=== PATIENT | female | born 1960 | race Caucasian/White ===

== ENCOUNTER 2020-01-25 07:19 | Outpatient (REF) | payer OTHER, SELFPAY ==
[2020-01-25 08:16] LABS: Alanine Aminotransferase 37 U/L (0-31); Albumin Level 4.2 g/dL (3.5-5.0); Alkaline Phosphatase 72 U/L (39-117); Anion Gap 12 (12-20); Aspartate Amino Transferase 22 U/L (5-31); Bilirubin Total 0.3 mg/dL (0.0-1.0); Blood Urea Nitrogen 13 mg/dL (9-16); Calcium 9.4 mg/dL (8.4-10.2); Carbon Dioxide 26 mmol/L (22-29); Chloride 109 mmol/L (96-108); Cholesterol 203 mg/dL; Estimated Glomerular Filt Rate > 60; Glucose Fasting 125 mg/dL (60-99); HDL Cholesterol 53 mg/dL; LDL Cholesterol Calculated 133 mg/dl; Potassium 4.6 mmol/l (3.3-5.1); Sodium 142 mmol/L (135-145); Total Protein 7.6 g/dL (6.5-8.0); Triglycerides 86 mg/dL
== END 2020-01-25 07:20 | disposition home or self-care (01) ==
LOC: HO.LAB 07:19
PROVIDERS: PCP Internal Medicine; Visit Provider Internal Medicine
DX: E78.00 Pure hypercholesterolemia, unspecified (principal)
CPT/HCPCS: 80053; 80061

== ENCOUNTER 2020-03-30 12:20 | Outpatient (REF) | payer OTHER, SELFPAY ==
--- NOTE | 2020-03-30 16:00 | MHC.AU.P13 ---
Adult Audiological Evaluation Date of Visit: 03/30/20 Reason for Appointment: Audiological evaluation due to concern for decreased hearing. Ms. Lee has a long-standing history of bilateral sensorineural hearing loss, which she feels is gradually worsening over time. She recently lost a hearing aid and is interested in purchasing a new set. She denies any significant changes to her medical history. Previous Hearing Test Results: [facility] [place], 05/27/2016- Mild to profound hearing loss, mixed in the left ear and sensorineural in the right. Non-compliant left middle-ear system. Medical History: Medical History: Unremarkable Medical History Hearing Instrument History- Right Ear: Cd Technician: Spotware Systems / cTrader Model: Foodzie0-SP BTE Serial Number: [id number] Battery Size: 13 Repair Warranty: 04/11/2017 Loss and Damage Warranty: 04/11/2017 Dispensed By: [facility] Date of Fittin01/22/2016 Hearing Instrument History- Left Ear: Cd Technician: [employer]ware [employer] / cTrader Model: Foodzie0-SP BTE Serial Number: [id number] Battery Size: 13 Warranty: 04/11/2017 Loss and Damage Warranty: 04/11/2017 Dispensed By: [facility] Date of Fittin01/22/2016 Otoscopy: Right Ear: Unremarkable Left Ear: Unremarkable Tympanometry: Tympanometry performed due to: History of middle ear dysfunction Right Ear: Normal Middle Ear System (Type A) Left Ear: Reduced Middle Ear Compliance (Type As) Hearing Evaluation: Transducer(s) Used: Insert Earphones, Bone Conduction Method: Conventional Audiometry Stimuli Used: Pure Tones Right Ear: Description of Hearing: Mild sloping to severe sensorineural hearing loss from 250-8000 Hz. Left Ear: Description of Hearing: Normal hearing at 250 Hz, sloping to a mild sensorineural hearing loss at 500 Hz, a moderate mixed hearing loss at 750 Hz, moderately severe to severe sensorineural hearing loss at 0489-7142 Hz, a severe mixed hearing loss at 3000 Hz, and a severe hearing loss from 4000-98707 Hz. Speech Recognition Threshold (SRT): Method Used: Monitored Live Voice Stimuli Used: Spondee Words Right Ear: 35 dBHL Left Ear: 35 dBHL Word Discrimination: Method: Recorded Lists Word Lists Used: NU-6 Right Ear: 76% at 75 dBHL, 76% at 80 dBHL Left Ear: 48% at 80 dBHL, 72% at 85 dBHL Comparison: Compared to the most recent evaluation: Thresholds have decreased bilaterally. Middle ear dysfunction has improved in the left ear. Compared to most recent evaluation: Improvement in word discrimination scores since last audiogram in 2017. Recommendations: Audiological re-evaluation in one year. Trial with amplification is recommended. Hearing Aid Fitting will be scheduled when all materials arrive. See Hearing Aid Evaluation report for more information. Diagnosis: Primary Diagnosis: H90.3 Bilateral Sensorineural Hearing Loss Services Performed: Comprehensive Audiological Evaluation (CPT 72180) Tympanometry (CPT 85880) Signature: Provider: Katelyn Randall, CCC-A
--- NOTE | 2020-03-31 11:01 | MHC.AU.P13 ---
Adult Audiological Evaluation Date of Visit: 03/30/20 Reason for Appointment: Audiological evaluation due to concern for decreased hearing. Ms. Lee has a long-standing history of bilateral sensorineural hearing loss, which she feels is gradually worsening over time. She recently lost a hearing aid and is interested in purchasing a new set. She denies any significant changes to her medical history. Previous Hearing Test Results: [facility] [place], 05/27/2016- Mild to profound hearing loss, mixed in the left ear and sensorineural in the right. Non-compliant left middle-ear system. Medical History: Medical History: Unremarkable Medical History Hearing Instrument History- Right Ear: Speech Therapist Early Intervention: PopJam Model: SportSquare Games0-SP BTE Serial Number: [id number] Battery Size: 13 Repair Warranty: 04/11/2017 Loss and Damage Warranty: 04/11/2017 Dispensed By: [facility] Date of Fittin01/22/2016 Hearing Instrument History- Left Ear: Speech Therapist Early Intervention: PopJam Model: SportSquare Games0-SP BTE Serial Number: [id number] Battery Size: 13 Warranty: 04/11/2017 Loss and Damage Warranty: 04/11/2017 Dispensed By: [facility] Date of Fittin01/22/2016 Otoscopy: Right Ear: Unremarkable Left Ear: Unremarkable Tympanometry: Tympanometry performed due to: History of middle ear dysfunction Right Ear: Normal Middle Ear System (Type A) Left Ear: Reduced Middle Ear Compliance (Type As) Hearing Evaluation: Transducer(s) Used: Insert Earphones, Bone Conduction Method: Conventional Audiometry Stimuli Used: Pure Tones Right Ear: Description of Hearing: Mild sloping to severe sensorineural hearing loss from 250-8000 Hz. Left Ear: Description of Hearing: Normal hearing at 250 Hz, sloping to a mild sensorineural hearing loss at 500 Hz, a moderate mixed hearing loss at 750 Hz, moderately severe to severe sensorineural hearing loss at 3282-3262 Hz, a severe mixed hearing loss at 3000 Hz, and a severe hearing loss from 4000-52079 Hz. Speech Recognition Threshold (SRT): Method Used: Monitored Live Voice Stimuli Used: Spondee Words Right Ear: 35 dBHL Left Ear: 35 dBHL Word Discrimination: Method: Recorded Lists Word Lists Used: NU-6 Right Ear: 76% at 75 dBHL, 76% at 80 dBHL Left Ear: 48% at 80 dBHL, 72% at 85 dBHL Comparison: Compared to the most recent evaluation: Thresholds have decreased bilaterally. Middle ear dysfunction has improved in the left ear. Compared to most recent evaluation: Improvement in word discrimination scores since last audiogram in 2017. Recommendations: Audiological re-evaluation in one year. Trial with amplification is recommended. Hearing Aid Fitting will be scheduled when all materials arrive. See Hearing Aid Evaluation report for more information. Diagnosis: Primary Diagnosis: H90.3 Bilateral Sensorineural Hearing Loss Services Performed: Comprehensive Audiological Evaluation (CPT 51561) Tympanometry (CPT 01115) Signature: Provider: Katelyn Randall, CCC-A
--- NOTE | 2020-03-31 11:04 | MHC.AU.MED ---
Medical Clearance for Hearing Instrumentation Date: 03/31/20 Patient Name: Namrata Lee Date of : 1960 Referring Provider: Kalyani Mujica MD We have seen your patient on 03/31/20 and have determined that they are a candidate for amplification (See accompanying report). Specifically, they would benefit from: Hearing aid use in both ears There is a statute that addresses Medical Evaluation Requirements prior to fitting a patient with a hearing aid. According to [place] statute 265 CMR:6.03(1), (a) General. Except as provided in 265 CMR 6.03(1)(b), a insurance case manager shall not sell a hearing aid unless the prospective user has presented to the insurance case manager a written statement signed by a licensed physician that states that the patient's hearing loss has been medically evaluated and the patient may be considered a candidate for a hearing aid. The medical evaluation must have taken place within the preceding six months. Please note: Due to the [place] Statute referenced above, we cannot accept a signature other than that of a licensed physician. CONTRACT ASSISTANT and PA signatures cannot be accepted. I am in agreement with the above recommendation. There is no medical contraindication for hearing instrumentation. Physician Signature Date Physician Name (Printed)
--- NOTE | 2020-03-31 11:05 | MHC.AU.P13 ---
Hearing Aid Evaluation- Binaural Date of Visit: 03/30/20 Description of Hearing: Mild sloping to severe hearing loss bilaterally, sensorineural in the right ear, mixed in the left ear. Current Hearing Instrument Information: Phonak Bolero V50-SP BTE (LOST) Additional Information: Ms. Lee reports that she has lost her hearing aids and is interested in purchasing a new set. She reports difficulties hearing and understanding in most situations without her hearing aids. Discussed hearing aid options. Interested in Phonak DEANA aids, wants to stay with regular batteries. Interested in mid-level technology. Hearing Instrument Selection: Right Ear: Pharmacy Helper: Phonak Model: Plutoraeo P70-13T Battery Size: 13 Color: P1- Sand beige Internal Control Specialist: Size 1 Power Type of Dome: Power dome Left Ear: Pharmacy Helper: Phonak Model: Audeo P70-13T Battery Size: 13 Color: P1- Sand beige Internal Control Specialist: Size 1 P Type of Dome: Power dome Plan: Plan of Care for Hearing Instrument Fitting: Patient wishes to purchase hearing aids as prescribed Action Taken/Action Needed: Medical Clearance to be requested from PCP/ENT Hearing Fitting to be scheduled when materials arrive Comments: Quoted $4200.00 Diagnosis Code(s): Primary Diagnosis: H90.3 Bilateral Sensorineural Hearing Loss Signature: Provider: Katelyn Randall, RADHA-A
== END 2020-03-30 12:21 | disposition home or self-care (01) ==
LOC: HO.SH 12:20
PROVIDERS: Visit Provider Internal Medicine
DX: H90.3 Sensorineural hearing loss, bilateral (principal)
CPT/HCPCS: 92557; 92567

== ENCOUNTER 2020-04-10 15:16 | Outpatient (REF) | payer SELFPAY | END 2020-04-10 15:17 | disposition home or self-care (01) | LOC: HO.HAP 15:16 | PROVIDERS: Visit Provider Internal Medicine | DX: Z46.1 Encounter for fitting and adjustment of hearing aid (principal); H90.3 Sensorineural hearing loss, bilateral | CPT/HCPCS: V5261 ==

== ENCOUNTER 2020-05-07 10:47 | Outpatient (REF) | payer SELFPAY | END 2020-05-07 10:48 | disposition home or self-care (01) | LOC: HO.HAP 10:47 | PROVIDERS: Visit Provider Internal Medicine | DX: Z13.89 Encounter for screening for other disorder (principal) ==

== ENCOUNTER 2020-06-13 09:02 | Outpatient (REF) | payer OTHER, SELFPAY ==
--- NOTE | ~2020-06-13 | MM_ITS ---
EXAMINATION: MM SCREENING DIGITAL BREAST TOMOSYNTHESIS, BILATERAL CLINICAL INFORMATION: Screening. Asymptomatic. The lifetime risk of breast cancer based on the Tyrer-Cuzick Model is 6%. COMPARISON: Mammography: 03/30/2019, 03/25/2016; 03/04/2015, 02/05/2014; targeted left breast ultrasound 04/03/2019 TECHNIQUE: Digital breast tomosynthesis is performed in both the craniocaudal and mediolateral oblique views along with computer-aided detection (CAD). Synthesized 2D images are generated from the tomosynthesis. FINDINGS: There are scattered areas of fibroglandular density (ACR BI-RADS breast composition Category b). There are fine fibronodular parenchymal densities with small smooth waxing and waning nodularity. There is no significant mass or architectural abnormality. No developing density or abnormal calcifications. The axilla and skin contours are unremarkable. MM/MM tomosynthesis screening BI IMPRESSION: No significant changes from prior exams. ASSESSMENT: BI-RADS 2: Benign RECOMMENDATION: Routine annual mammography screening. This patient's information was entered into a reminder system with a target due date for their next mammogram.
== END 2020-06-13 09:03 | disposition home or self-care (01) ==
LOC: HO.MAMMO 09:02
PROVIDERS: Visit Provider Internal Medicine
DX: Z12.31 Encounter for screening mammogram for malignant neoplasm of breast (principal)
CPT/HCPCS: 77063; 77067

== ENCOUNTER 2020-06-23 07:28 | Outpatient (REF) | payer OTHER, SELFPAY ==
[2020-06-23 08:50] LABS: Alanine Aminotransferase 30 U/L (0-31); Albumin Level 4.1 g/dL (3.5-5.0); Alkaline Phosphatase 76 U/L (39-117); Anion Gap 11 (12-20); Aspartate Amino Transferase 20 U/L (5-31); Bilirubin Total 0.3 mg/dL (0.0-1.0); Blood Urea Nitrogen 12 mg/dL (9-16); Calcium 9.2 mg/dL (8.4-10.2); Carbon Dioxide 26 mmol/L (22-29); Chloride 110 mmol/L (96-108); Cholesterol 206 mg/dL; Estimated Glomerular Filt Rate > 60; Glucose Fasting 116 mg/dL (60-99); HDL Cholesterol 49 mg/dL; LDL Cholesterol Calculated 140 mg/dl; Sodium 142 mmol/L (135-145); Total Protein 7.1 g/dL (6.5-8.0); Triglycerides 86 mg/dL
== END 2020-06-23 07:29 | disposition home or self-care (01) ==
LOC: HO.LAB 07:28
PROVIDERS: PCP Internal Medicine; Visit Provider Internal Medicine
DX: E78.5 Hyperlipidemia, unspecified (principal)
CPT/HCPCS: 36415; 80053; 80061

== ENCOUNTER 2021-02-03 06:09 | Outpatient (REF) | payer OTHER, SELFPAY | END 2021-02-03 06:10 | disposition home or self-care (01) | LOC: HO.HMGCLDS 06:09 | PROVIDERS: PCP Internal Medicine; Visit Provider Internal Medicine | DX: Z20.822 Contact with and (suspected) exposure to COVID-19 (principal) | CPT/HCPCS: C9803; U0003; U0005 ==

== ENCOUNTER 2021-04-12 08:31 | Outpatient (REF) | payer SELFPAY ==
--- NOTE | 2021-04-12 09:05 | MHC.AU.HFU ---
Hearing Instrument Follow-Up- Binaural Date of Visit: 04/12/21 Right Ear: Administrative Personal Assistant: Phonak Model: Audeo P70-13T Serial Number: [id number] Repair Warranty: 06/28/2023 Loss and Damage Warranty: 06/28/2023 Battery Size: 13 Wax Room Supervisor: Size 1 Power Type of Dome: Small power Type of Wax Guard: Cerushield Left Ear: Administrative Personal Assistant: Phonak Model: Audeo P70-13T Serial Number: [id number] Repair Warranty: 06/28/2023 Loss and Damage Warranty: 06/28/2023 Battery Size: 13 Wax Room Supervisor: Size 1 P Type of Dome: Small power Type of Wax Guard: Cerushield Follow-Up Summary: Patient feels she is hearing too many background noises, and it is getting in the way of speech understanding. 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 She will soon be starting a [id number] job. Hearing aid maintenance performed. Wax guards and domes replaced. Microphones vacuumed. Hearing aids are amplifying clearly. In all settings, NoiseBlock was increased. Loud sound gain was reduced by 2 steps. Although the office is a quiet environment, patient could tell that speech sounded clearer so far. If she feels additional adjustments are needed, she will call to make an appointment. Recommendations: Hearing instrument follow-up or maintenance as needed. Diagnosis Code(s): Primary Diagnosis: H90.3 Bilateral Sensorineural Hearing Loss Signature: Provider: Katelyn Hughes, [facility]
== END 2021-04-12 08:32 | disposition home or self-care (01) ==
LOC: HO.HAP 08:31
PROVIDERS: Visit Provider Internal Medicine
DX: Z13.89 Encounter for screening for other disorder (principal)

== ENCOUNTER 2021-05-15 07:13 | Outpatient (REF) | payer BC, SELFPAY ==
[2021-05-15 08:43] LABS: Alanine Aminotransferase 30 U/L (0-31); Albumin Level 4.1 g/dL (3.5-5.0); Alkaline Phosphatase 81 U/L (39-117); Anion Gap 13 (12-20); Aspartate Amino Transferase 16 U/L (5-31); Bilirubin Total 0.3 mg/dL (0.0-1.0); Blood Urea Nitrogen 11 mg/dL (9-16); Calcium 9.5 mg/dL (8.4-10.2); Carbon Dioxide 25 mmol/L (22-29); Chloride 107 mmol/L (96-108); Cholesterol 232 mg/dL; Estimated Glomerular Filt Rate > 60; Glucose Fasting 127 mg/dL (60-99); HDL Cholesterol 49 mg/dL; LDL Cholesterol Calculated 160 mg/dl; Potassium 4.6 mmol/L (3.3-5.1); Sodium 140 mmol/L (135-145); Total Protein 7.4 g/dL (6.5-8.0); Triglycerides 115 mg/dL
== END 2021-05-15 07:14 | disposition home or self-care (01) ==
LOC: HO.LAB 07:13
PROVIDERS: PCP Internal Medicine; Visit Provider Internal Medicine
DX: E78.5 Hyperlipidemia, unspecified (principal)
CPT/HCPCS: 36415; 80053; 80061

== ENCOUNTER 2021-06-19 08:13 | Outpatient (REF) | payer BC, SELFPAY ==
--- NOTE | ~2021-06-19 | MM_ITS ---
EXAMINATION: MM SCREENING DIGITAL BREAST TOMOSYNTHESIS, BILATERAL CLINICAL INFORMATION: Screening. Asymptomatic. The lifetime risk of breast cancer based on the Tyrer-Cuzick Model is 6%. COMPARISON: Mammography: 06/13/2020, 03/30/2019, 03/25/2016, 03/04/2015; targeted left breast ultrasound 04/03/2019 TECHNIQUE: Digital breast tomosynthesis is performed in both the craniocaudal and mediolateral oblique views along with computer-aided detection (CAD). Synthesized 2D images are generated from the tomosynthesis. Additional left CC view is provided. FINDINGS: There are scattered areas of fibroglandular density (ACR BI-RADS breast composition Category b). There are no significant masses, abnormal calcifications, or other abnormalities. Parenchymal asymmetry anterior upper outer right breast is decreased since 2015. Small nodule posterior upper outer right breast, stable to slightly decreased. Cyst central 1:00 left breast is decreased since 2019. The axilla and skin contours are unremarkable. MM/MM tomosynthesis screening BI IMPRESSION: No mammographic evidence of malignancy. ASSESSMENT: BI-RADS 2: Benign RECOMMENDATION: Routine annual mammography screening. This patient's information was entered into a reminder system with a target due date for their next mammogram.
== END 2021-06-19 08:14 | disposition home or self-care (01) ==
LOC: HO.MAMMO 08:13
PROVIDERS: PCP Internal Medicine; Visit Provider Internal Medicine
DX: Z12.31 Encounter for screening mammogram for malignant neoplasm of breast (principal)
CPT/HCPCS: 77063; 77067

== ENCOUNTER 2022-01-08 07:01 | Outpatient (REF) | payer OTHER, SELFPAY ==
[2022-01-08 08:05] LABS: Alanine Aminotransferase 26 U/L (0-31); Albumin Level 4.2 g/dL (3.5-5.0); Alkaline Phosphatase 76 U/L (39-117); Anion Gap 11 (12-20); Aspartate Amino Transferase 19 U/L (5-31); Bilirubin Total 0.3 mg/dL (0.0-1.0); Blood Urea Nitrogen 9 mg/dL (9-16); Calcium 9.5 mg/dL (8.4-10.2); Carbon Dioxide 26 mmol/L (22-29); Chloride 104 mmol/L (96-108); Cholesterol 122 mg/dL; Estimated Glomerular Filt Rate > 60; Glucose Fasting 161 mg/dL (60-99); HDL Cholesterol 41 mg/dL; LDL Cholesterol Calculated 66 mg/dl; Potassium 4.7 mmol/L (3.3-5.1); Sodium 136 mmol/L (135-145); Total Protein 7.5 g/dL (6.5-8.0); Triglycerides 76 mg/dL
== END 2022-01-08 07:02 | disposition home or self-care (01) ==
LOC: HO.LAB 07:01
PROVIDERS: PCP Internal Medicine; Visit Provider Internal Medicine
DX: Z00.00 Encounter for general adult medical examination without abnormal findings (principal); E78.5 Hyperlipidemia, unspecified
CPT/HCPCS: 36415; 80053; 80061

== ENCOUNTER 2022-01-17 17:38 | Outpatient (REF) | payer OTHER, SELFPAY ==
[2022-01-17 18:33] LABS: Influenza A PCR NEGATIVE (Negative); Influenza B PCR NEGATIVE (Negative); Resp Syncy Virus RNA Qual PCR NEGATIVE (Negative); SARS COV2 PCR INHOUSE NEGATIVE (Negative)
== END 2022-01-17 17:39 | disposition home or self-care (01) ==
LOC: HO.LNP 17:38
PROVIDERS: Visit Provider Physician Assistant
DX: Z20.822 Contact with and (suspected) exposure to COVID-19 (principal); B34.9 Viral infection, unspecified
CPT/HCPCS: 0241U

== ENCOUNTER 2022-03-17 14:06 | Outpatient (REF) | payer OTHER, SELFPAY ==
[2022-03-17 16:32] LABS: MANUAL DIFF FLAG NO
[2022-03-17 16:38] LABS: Basophils Absolute Auto 0.1 X10*3/uL (0.0-0.2); Basophils Percent Auto 0.8 % (0-2); Eosinophils Absolute Auto 0.4 X10*3/uL (0.0-0.4); Eosinophils Percent Auto 5.2 % (0-4); Hematocrit 41.1 % (37.0-47.0); Hemoglobin 13.8 g/dl (12.0-16.0); Imm Gran Abs Auto 0.01 X10*3/uL (0.00-0.03); Imm Gran Pct Auto 0.1 % (0.0-0.4); Lymphocytes Absolute Auto 2.5 X10*3/uL (1.2-4.9); Lymphocytes Percent Auto 32.2 % (20-40); Mean Corpuscular HGB Conc 33.6 g/dl (31.0-35.0); Mean Corpuscular Hemoglobin 29.3 pg (27.0-33.0); Mean Corpuscular Volume 87.3 fL (80.0-98.0); Mean Platelet Volume 10.5 fL (9.4-12.3); Monocytes Absolute Auto 0.7 X10*3/uL (0.1-1.2); Neutrophils Percent Auto 52.7 % (45-73); Platelet Count 283 X10*3/uL (160-400); Red Blood Count 4.71 X10*6/uL (4.20-5.50); Red Cell Distribution Width 12.3 % (11.0-16.0); White Blood Count 7.6 X10*3/uL (4.8-10.8)
[2022-03-17 16:48] LABS: Alanine Aminotransferase 25 U/L (0-31); Albumin Level 4.1 g/dL (3.5-5.0); Alkaline Phosphatase 69 U/L (39-117); Anion Gap 13 (12-20); Aspartate Amino Transferase 20 U/L (5-31); Bilirubin Total 0.2 mg/dL (0.0-1.0); Blood Urea Nitrogen 11 mg/dL (9-16); Calcium 9.4 mg/dL (8.4-10.2); Carbon Dioxide 27 mmol/L (22-29); Chloride 108 mmol/L (96-108); Estimated Glomerular Filt Rate > 60; Glucose Random 144 mg/dL (60-115); Iron 78 mcg/dL (30-160); Percent Iron Saturation 25 % (15-50); Potassium 4.7 mmol/L (3.3-5.1); Sodium 143 mmol/L (135-145); Total Iron Binding Capacity 311 mcg/dL (228-428); Total Protein 7.1 g/dL (6.5-8.0); Unsaturated Iron Binding 233 ug/dL
== END 2022-03-17 14:07 | disposition home or self-care (01) ==
LOC: HO.HMGCLDS 14:06
PROVIDERS: PCP Internal Medicine; Visit Provider Internal Medicine
DX: D64.9 Anemia, unspecified (principal); E11.9 Type 2 diabetes mellitus without complications
CPT/HCPCS: 36415; 80053; 83540; 85025

== ENCOUNTER 2022-04-06 09:39 | Outpatient (REF) | payer OTHER, SELFPAY ==
--- NOTE | ~2022-04-06 | XR_ITS ---
EXAMINATION: XR CHEST CLINICAL INFORMATION: Shortness of breath. COMPARISON: 04/22/2017 chest radiographs. TECHNIQUE: 2 views of the chest were obtained. FINDINGS: Mild linear markings are seen in the right middle lobe. The left lung is clear. There are no pleural effusions. The heart and mediastinal structures are unremarkable. XR/XR chest 2V IMPRESSION: Possible mild atelectasis in the right middle lobe. No acute cardiopulmonary process.
== END 2022-04-06 09:40 | disposition home or self-care (01) ==
LOC: HO.HMGCX 09:39
PROVIDERS: PCP Internal Medicine; Visit Provider Nurse Practitioner Family
DX: R06.02 Shortness of breath (principal); Z86.16 Personal history of COVID-19
CPT/HCPCS: 71046

== ENCOUNTER 2022-04-11 08:30 | Outpatient (REF) | payer OTHER, SELFPAY ==
--- NOTE | 2022-04-12 16:25 | MHC.AU.FUR ---
Hearing Instrument Follow-Up Date of Visit: 04/11/22 Right Ear: Corporate Travel Agent: Phonak Audeo P 70-R Sand Beige #[id number] Repair Warranty: 06/28/2023 Loss and Damage Warranty: 06/28/2023 Service Plan: 06/28/2023 Battery Size: 13 Color: P1- Sand beige Technical Services Analyst: Size 1 Power Type of Dome: Small power Type of Wax Guard: Cerushield Dispensed By: [facility] Date of Fittin04/10/2020 Left Ear: Corporate Travel Agent: Phonak Audeo P 70-R Sand Beige #[id number] Repair Warranty: 06/28/2023 Loss and Damage Warranty: 06/28/2023 Service Plan: 06/28/2023 Battery Size: 13 Color: P1- Sand beige Technical Services Analyst: Size 1 Power Type of Dome: Small power Type of Wax Guard: Cerushield Dispensed By: [facility] Date of Fittin04/10/2020 Follow-Up Summary: Patient seen for audiologic re-evaluation with some decrease in hearing. When reprogramming aids to new audiogram, noticed the gain was cut down significantly in the high frequencies and may relate to the decreased speech understanding for both ears. Discussed advantages of having C-Shells with UP receivers and patient wants to pursue purchase. Took impressions of both ears without complication and ordered canal lock c-shells with UP receivers. Cleaned both aids, changed wax guards. QUOTED $350.00 FOR THE UP CANAL LOCK C-SHELLS. WHEN FIT NEED TO UPDATE AIDS TO THE AUDIOGRAM, RECALCULATING SETTINGS Recommendations: Patient will be contacted when materials have arrived. Diagnosis Code(s):Primary Diagnosis: H90.3 Bilateral Sensorineural Hearing Loss Signature:Provider: Bhupendra Sharif, [facility]
== END 2022-04-11 08:31 | disposition home or self-care (01) ==
LOC: HO.SH 08:30
PROVIDERS: Visit Provider Internal Medicine
DX: H90.3 Sensorineural hearing loss, bilateral (principal)
CPT/HCPCS: 92557; 92567

== ENCOUNTER 2022-04-22 07:46 | Outpatient (REF) | payer OTHER, SELFPAY ==
[2022-04-22 13:23] LABS: Alanine Aminotransferase 29 U/L (0-31); Albumin Level 4.1 g/dL (3.5-5.0); Alkaline Phosphatase 70 U/L (39-117); Anion Gap 12 (12-20); Aspartate Amino Transferase 21 U/L (5-31); Bilirubin Total 0.3 mg/dL (0.0-1.0); Blood Urea Nitrogen 14 mg/dL (9-16); Calcium 9.7 mg/dL (8.4-10.2); Carbon Dioxide 27 mmol/L (22-29); Chloride 108 mmol/L (96-108); Cholesterol 122 mg/dL; Estimated Glomerular Filt Rate > 60; Glucose Fasting 115 mg/dL (60-99); HDL Cholesterol 44 mg/dL; LDL Cholesterol Calculated 61 mg/dl; Potassium 4.8 mmol/L (3.3-5.1); Sodium 142 mmol/L (135-145); Triglycerides 88 mg/dL
[2022-04-22 13:40] LABS: Folate 7.8 ng/mL (> or = 4.0); Vitamin D 25-OH Total 56.7 ng/mL (>30)
[2022-04-22 13:59] LABS: Vitamin B12 1052 pg/mL (200-900)
[2022-04-22 14:04] LABS: Creatinine Urine 103.41 mg/dL; Microalbum/Creatinine Ratio Ur 6.7 ug/mg cr
== END 2022-04-22 07:47 | disposition home or self-care (01) ==
LOC: HO.HMGCLDS 07:46
PROVIDERS: Visit Provider Internal Medicine
DX: E53.8 Deficiency of other specified B group vitamins (principal); E55.9 Vitamin D deficiency, unspecified; E11.9 Type 2 diabetes mellitus without complications; E78.5 Hyperlipidemia, unspecified
CPT/HCPCS: 36415; 80053; 80061; 82043; 82306; 82607; 82746

== ENCOUNTER 2022-04-22 10:25 | Outpatient (REF) | payer SELFPAY | END 2022-04-22 10:26 | disposition home or self-care (01) | LOC: HO.HAP 10:25 | PROVIDERS: Visit Provider Internal Medicine | DX: Z46.1 Encounter for fitting and adjustment of hearing aid (principal); H90.3 Sensorineural hearing loss, bilateral | CPT/HCPCS: V5264 ==

== ENCOUNTER 2022-04-22 11:03 | Outpatient (REF) | payer OTHER, SELFPAY | END 2022-04-22 11:04 | disposition home or self-care (01) | LOC: HO.LAB 11:03 | PROVIDERS: PCP Internal Medicine; Visit Provider Internal Medicine | DX: Z13.89 Encounter for screening for other disorder (principal) ==

== ENCOUNTER 2022-04-22 11:06 | Outpatient (REF) | payer OTHER, SELFPAY ==
--- NOTE | ~2022-04-22 | XR_ITS ---
EXAMINATION: XR chest 2V CLINICAL INFORMATION: Reason for Exam J98.11 - Atelectasis COMPARISON: Chest radiograph 04/06/2022 TECHNIQUE: 2 views of the chest FINDINGS: Clear lungs. No pneumothorax or pleural effusion. Normal cardiomediastinal silhouette. XR/XR chest 2V Impression: * Clear lungs.
== END 2022-04-22 11:07 | disposition home or self-care (01) ==
LOC: HO.XRAY 11:06
PROVIDERS: PCP Internal Medicine; Visit Provider Internal Medicine
DX: J98.11 Atelectasis (principal)
CPT/HCPCS: 71046

== ENCOUNTER 2022-05-18 08:48 | Outpatient (REF) | payer SELFPAY ==
--- NOTE | 2022-05-18 09:20 | MHC.AU.HFU ---
Hearing Instrument Follow-Up- Binaural Date of Visit: 05/18/22 Right Ear: Phonak Audeo P 70-R Sand Beige #[id number] Repair Warranty: 06/28/2023 Loss and Damage Warranty: 06/28/2023 Service Plan: 06/28/2023 Battery Size: 13 Radiology Practitioner Assistant: Size 1 Power Type of Dome: Small power Type of Mold: Phonak Canal Lock C-Shell #[id number] remake warranty 07/19/2022 Type of Wax Guard: CeruStop Dispensed By: [facility] Date of Fittin04/10/2020 Left Ear: Phonak Audeo P 70-R Sand Beige #[id number] Repair Warranty: 06/28/2023 Loss and Damage Warranty: 06/28/2023 Service Plan: 06/30/2023 Battery Size: 13 Radiology Practitioner Assistant: Size 1 P Type of Dome: Small power Type of Mold: Phonak Canal Lock C-Shell #[id number] remake warranty 07/19/2022 Type of Wax Guard: CeruStop Dispensed By: [facility] Date of Fittin04/10/2020 Follow-Up Summary: Namrata is here today for a hearing aid check as her left hearing aid stopped working about 1 week ago. She is also having trouble pairing her hearing aids to her My Phonak mis on her iPhone. Otoscopy reveals clear ear canals bilaterally. Visual inspection reveals debris in the wax guards. I replaced the hearing aid wax guards and brushed the microphones. Listening check reveals clear sound bilaterally. Volume control working bilaterally. Namrata was happy to report improved sound. I reviewed cleaning and when to change the wax guards. Next, I had Namrata restart her iPhone and then re-paired the hearing aids to her iPhone bluetooth and the Phonak mis. The hearing aids are now successfully paired. No other questions or concerns at this time. Additional follow-up as needed. No charge, in warranty. Diagnosis Code(s): Primary Diagnosis: H90.3 Bilateral Sensorineural Hearing Loss Signature: Provider: Katelyn Oropeza, CCC-A
== END 2022-05-18 08:49 | disposition home or self-care (01) ==
LOC: HO.HAP 08:48
PROVIDERS: Visit Provider Internal Medicine
DX: Z13.89 Encounter for screening for other disorder (principal)

== ENCOUNTER 2022-05-27 13:28 | Outpatient (REF) | payer OTHER, SELFPAY ==
--- NOTE | ~2022-05-27 | CT_ITS ---
EXAMINATION: CT CHEST SCREENING CLINICAL INFORMATION: Personal history of nicotine dependence. 2 packs per day for 44 years. Quit 3 years ago. COMPARISON: Chest x-ray 04/22/2022 TECHNIQUE: Multidetector volumetric CT imaging of the chest is performed without contrast using low dose technique. Additional 2D coronal and sagittal reformatted images and axial 3D maximum intensity projection (MIP) images are generated on the CT workstation. This CT examination was performed using dose optimization techniques as appropriate, variously including the following: *Automated exposure control *Adjustment of mA and/or kV according to patient size (this includes techniques or standardized protocols for targeted exams where dose is matched to indication/reason for exam; i.e. extremities or head) *Use of iterative reconstruction technique DLP: 95 mGy-cm FINDINGS: LUNGS: There is centrilobular mild emphysema without acute pneumonic process. There is no pulmonary nodule, mass or consolidation. MEDIASTINUM: The thyroid lobes are symmetric and normal. The central trachea and bronchi are widely patent. The heart size and great vessels are normal caliber. There is no pericardial effusion. No abnormal size mediastinal or hilar lymph nodes seen. CORONARY ARTERY CALCIFICATION: None visualized on this study. PLEURA: There is no pleural effusion. No pleural mass or thickening. AXILLA: No lymphadenopathy. UPPER ABDOMEN: Visualized liver, spleen, pancreas and bilateral adrenal glands are unremarkable. The gallbladder has been surgically removed. OSSEOUS STRUCTURES: No aggressive lytic or sclerotic process seen. CT/CT lung screening IMPRESSION: Centrilobular emphysema without acute process. No pulmonary nodule, mass or consolidation. Unremarkable CT screening exam. ASSESSMENT: Lung-RADS category 1: Negative RECOMMENDATION: Low-dose annual CT chest.
== END 2022-05-27 13:29 | disposition home or self-care (01) ==
LOC: HO.CT 13:28
PROVIDERS: PCP Internal Medicine; Visit Provider Physician Assistant Medical
DX: Z12.2 Encounter for screening for malignant neoplasm of respiratory organs (principal); Z87.891 Personal history of nicotine dependence
CPT/HCPCS: 71271; G0296

== ENCOUNTER 2022-06-28 09:02 | Outpatient (REF) | payer OTHER, SELFPAY ==
--- NOTE | ~2022-06-28 | MM_ITS ---
EXAMINATION: MM SCREENING DIGITAL BREAST TOMOSYNTHESIS, BILATERAL CLINICAL INFORMATION: Screening. Asymptomatic. The lifetime risk of breast cancer based on the Tyrer-Cuzick Model is 7%. COMPARISON: Mammography: 06/19/2021, 06/13/2020, 03/30/2019, 03/25/2016, 03/04/2015 TECHNIQUE: Digital breast tomosynthesis is performed in both the craniocaudal and mediolateral oblique views along with computer-aided detection (CAD). Synthesized 2D images are generated from the tomosynthesis. FINDINGS: There are scattered areas of fibroglandular density (ACR BI-RADS breast composition Category b). Bilateral fibrocystic changes are overall decreased since 2016. There is scattered small fibronodular parenchymal pattern without significant mass or architectural abnormality. No abnormal calcifications. The axilla and skin contours are unremarkable. No significant changes. MM/MM tomosynthesis screening BI IMPRESSION: No mammographic evidence of malignancy. ASSESSMENT: BI-RADS 2: Benign RECOMMENDATION: Routine annual mammography screening. This patient's information was entered into a reminder system with a target due date for their next mammogram.
== END 2022-06-28 09:03 | disposition home or self-care (01) ==
LOC: HO.MAMMO 09:02
PROVIDERS: PCP Internal Medicine; Visit Provider Obstetrics & Gynecology
DX: Z12.31 Encounter for screening mammogram for malignant neoplasm of breast (principal)
CPT/HCPCS: 77063; 77067

== ENCOUNTER 2022-09-05 11:08 | Outpatient (AMB) | payer OTHER, SELFPAY ==
--- NOTE | 2022-09-05 11:09 | AM.OFFWIN_ITS ---
Intake Vital Signs 09/05/22 11:12 BP 122/80 Blood Pressure Location Lt brachial Position Sitting Pulse 74 Pulse Source Pulse Oximeter Temp 97.8 F Temp Source Temporal Artery Scan Pulse Oximetry (%) 95 Oxygen Delivery Method Room Air Intake Visit Reasons: EP bruise/rash around old tick bite (lobby) Intake Note: Patient here for a rash around tick bite on right side, she states this happened about a week ago and was just taken out yesterday. Patient Tobacco Use Status: Former Tobacco user Quit Date: 02/06/2017 Allergies acetaminophen [From PERCOCET] Allergy (Intermediate, Verified 09/05/22 11:11) HIVES oxycodone [From PERCOCET] Allergy (Intermediate, Verified 09/05/22 11:11) HIVES Do you need a note to return to daycare/school/sports/work: No HPI EP bruise/rash around old tick bite (lobby) HPI Details Patient presents following removal of a tick from the right side of her abdomen yesterday. She reports feeling what she thought to be a skin tag at the site about 1 week ago. Yesterday when going to remove this, she found it to instead be a tick. Entire tick was removed and she now has some bruising around site. [facility] Medical History Depression with anxiety Dyslipidemia PROSPER (generalized anxiety disorder) Hearing loss History of alcohol abuse Mild recurrent major depression Personal history of COVID-19 Personal history of nicotine dependence Urinary incontinence Surgical History History of arthroscopy of right knee History of section History of colonoscopy History of laparoscopic cholecystectomy History of surgery Family History Father Hypertension Mother CVD (cardiovascular disease) Paternal Grandmother Diabetes Social History Housing: Apartment Alcohol intake: former Patient Tobacco Use Status: Former Tobacco user Quit Date: 02/06/2017 Tobacco use type: Cigarette Years Smoked: (former smoker - onset 14yo, 1ppd x 43yrs, 40pyh - quit 2017) e-Cigarette/Vaping Use: Never Used Second Hand Smoke Exposure: No service: No Current occupational status: unemployed and student Current occupational exposures/hazards: No Cognitive needs: No Hearing needs: No Vision needs: Yes Review of Systems Const All systems reviewed & are unremarkable except as noted in HPI and below Physical Exam Vital Signs: Last Vital Signs Temp 97.8 F 09/05/22 11:12 Pulse 74 09/05/22 11:12 BP 122/80 09/05/22 11:12 Pulse Ox 95 09/05/22 11:12 Oxygen Delivery Method Room Air 09/05/22 11:12 Const General: cooperative, healthy appearing and no acute distress Neck Neck: Yes no lymphadenopathy Resp Effort & Inspection: normal respiratory effort and able to speak in complete sentences Skin Other: right upper abdomen with small scab and surrounding bruising circumferentially about 2cm in diameter. Extrem General: Yes capillary refill normal and Yes no clubbing, cyanosis or edema Psych Appearance: grossly normal Mental Status: mental status grossly normal Speech and movement: Normal speech and movement present Assessment & Plan Assessment & Plan (1) Tick bite of abdomen: Code(s): S30.861A - Insect bite (nonvenomous) of abdominal wall, initial encounter; W57.XXXA - Bitten or stung by nonvenomous insect and other nonvenomous arthropods, initial encounter Qualifiers: Encounter type: initial encounter Qualified Code(s): S30.861A - Insect bite (nonvenomous) of abdominal wall, initial encounter; W57.XXXA - Bitten or stung by nonvenomous insect and other nonvenomous arthropods, initial encounter Plan: Doxycycline for Lyme prophylaxis as patient meets criteria for this. Labs also ordered 6 weeks out from today for Lyme. If she develops any concerning symptoms in the meantime, she can certainly return to the clinic for further evaluation. Orders: Orders Lyme IgG/IgM w/reflex to WB 10/17/22 S30.861A - Insect bite (nonvenomous) of abdominal wall, initial encounter, W57.XXXA - Bitten or stung by nonvenomous insect and other nonvenomous arthropods, initial encounter Medications: New doxycycline hyclate 200 mg (2 x 100 mg) PO ONCE 2 tabs 0RF S30.861A - Insect bite (nonvenomous) of abdominal wall, initial encounter, W57.XXXA - Bitten or stung by nonvenomous insect and other nonvenomous arthropods, initial encounter Coding Level of Care Code Est Pt Level 3 (56482) Diagnoses Tick bite of abdomen S30.861A; W57.XXXA Encounter type: initial encounter
[2022-09-05 11:12] VITALS: BP 122/80; PULSE 74; TEMP 36.6; O2SAT 95
== END 2022-09-05 11:36 | disposition home or self-care (01) ==
PROVIDERS: PCP Internal Medicine; Visit Provider Nurse Practitioner Family
DX: S30.861A Insect bite (nonvenomous) of abdominal wall, initial encounter (principal); W57.XXXA Bitten or stung by nonvenomous insect and other nonvenomous arthropods, initial encounter
CPT/HCPCS: 99213

== ENCOUNTER 2023-01-12 16:33 | Outpatient (AMB) | payer OTHER, SELFPAY ==
--- NOTE | 2023-01-12 16:35 | A.OFFPC_ITS ---
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 Required: No Accompanied by: Self / Same As Patient Allergies acetaminophen [From PERCOCET] Allergy (Intermediate, Verified 01/12/23 16:58) HIVES oxycodone [From PERCOCET] Allergy (Intermediate, Verified 01/12/23 16:58) HIVES Medication List - Last Reconciled 01/12/23 by Kalyani Mujica MD blood sugar diagnostic (FreeStyle Lite Strips) Use 1 strip once a day blood-glucose meter (FreeStyle Lite Meter kit) As directed bupropion HCl 150 mg PO QAM 90 days buspirone 10 mg PO TID 90 days lancets (FreeStyle Lancets) Use 1 lancet once a day metformin 500 mg PO BID 90 days oxybutynin chloride 5 mg PO BID 90 days rosuvastatin 20 mg PO DAILY 90 days Tobacco use date assessed: 04/19/22 Dental Screening Dental Screen Date: 01/12/23 Did you have a dental visit in the last 12 months?: No Did you have a dental problem in the last 6 months where you did not have access to dental care?: No Was dental information given to patient?: Patient has dentist HPI HPI Comments History of Present Illness Details This is a 62 year old female with diabetes mellitus and mild recurrent major depression that comes for her physical exam. Depression stable with medications. A1c within goal. Last mammogram was 2022 and was normal. Pap smear was 2022 as per patient. Last colonoscopy was 2015 and next colonoscopy should be 2025. [facility] Medical History Personal history of nicotine dependence Personal history of COVID-19 PROSPER (generalized anxiety disorder) Mild recurrent major depression Hearing loss Depression with anxiety Urinary incontinence Dyslipidemia History of alcohol abuse Surgical History History of colonoscopy History of surgery History of section History of arthroscopy of right knee History of laparoscopic cholecystectomy Family History Father Hypertension Mother CVD (cardiovascular disease) Paternal Grandmother Diabetes Social History Housing: Apartment Alcohol intake: former Patient Tobacco Use Status: Former Tobacco user Quit Date: 02/06/2017 Tobacco use type: Cigarette Years Smoked: (former smoker - onset 14yo, 1ppd x 43yrs, 40pyh - quit 2017) e-Cigarette/Vaping Use: Never Used Second Hand Smoke Exposure: No service: No Current occupational status: employed Current occupational exposures/hazards: No Cognitive needs: No Hearing needs: No Vision needs: Yes Questionnaire Thrive Questionnaire Date Thrive assessed: 04/19/22 PROSPER-7 AMB Questionnaire PROSPER-7 Date PROSPER - 7 assessed: 04/19/22 Source: Developed by Drs. Jan Solano, Maria C Munguia, Wilmar Suero and colleagues, with an educational dwaine from [employer]. Review of Systems Const All systems reviewed & are unremarkable except as noted in HPI and below Eyes Reports no additional complaints, Denies change in vision and Denies other visual disturbances Card Denies chest pain at rest, Denies chest pain with activity, Denies edema, Denies irregular heart rhythm, Denies claudication, Denies dyspnea, Denies dyspnea on exertion, Denies orthopnea, Denies paroxysmal nocturnal dyspnea and Denies slow heart rate Resp Denies cough, Denies dyspnea and Denies dyspnea on exertion GI Denies abdominal pain, Denies change in bowel habits, Denies excessive flatus, Denies nausea and Denies vomiting Denies urinary incontinence, Denies urinary hesitancy and Denies urinary urgency Musc Denies abnormal gait, Denies atrophy, Denies deformity and Denies limited range of motion Skin/Breast Denies bleeding lesions, Denies changing lesions and Denies rash Neuro Denies abnormal gait, Denies behavioral changes, Denies confusion and Denies lack of coordination Psych Denies behavioral changes and Denies confusion Physical exam (Primary Care) Vital Signs: Last Vital Signs BP 120/82 01/12/23 16:38 BMI result Body Mass Index 28.7 Tobacco/Smoking Status: Tobacco use Status Tobacco use date assessed 04/19/22 01/12/23 16:37 Patient Tobacco Use Status Former Tobacco user 01/12/23 16:37 Tobacco use type Cigarette 01/12/23 16:37 e-Cigarette/Vaping Use Never Used 01/12/23 16:37 Thrive Assessment: Date of Thrive Assessment Date Thrive assessed 04/19/22 01/12/23 16:37 Const General: No confusion Orientation/consciousness: patient oriented x3 and No confusion HENMT Head: Yes normal to inspection, Yes normocephalic and Yes atraumatic Ears: external ears normal Eyes General: appearance normal, both eyes and all related structures Eyelids: Yes eyelids normal Conjunctivae: conjunctivae normal Neck Neck: Yes normal visual inspection and Yes supple Resp Effort & Inspection: normal respiratory effort Auscultation: clear to auscultation bilaterally Cardio Jugular venous distension: no JVD Rate: regular rate Rhythm: regular rhythm Heart sounds: S1 normal heart sound present and S2 normal heart sound present GI Inspection: Yes normal to inspection Palpation (GI): Soft to palpation and nontender Auscultation: normal bowel sounds Skin General skin exam: no rashes or lesions noted Neuro General: patient oriented x3, no focal motor deficits and No confusion Extrem General: Yes full ROM Psych Appearance: grossly normal Results AMB Hemoglobin A1c AMB Hemoglobin A1c 6.6 % Last Edit by ABEL Gill on 01/12/23 16:4 5 Results Reviewed Results Reviewed: Laboratory Last Values Hgb A1c (Clinic) 6.6 % (4.0-6.0) H 01/12/23 16:35 Assessment and Plan Assessment & Plan (1) Physical exam: Code(s): Z00.00 - Encounter for general adult medical examination without abnormal findings Plan: Repeat in a year. (2) Mild recurrent major depression: Code(s): F33.0 - Major depressive disorder, recurrent, mild Plan: Continue bupropion. (3) Diabetes mellitus: Code(s): E11.9 - Type 2 diabetes mellitus without complications Plan: Continue metformin. A1c goal is equal or less than 7 %. Orders: Orders AMB Hemoglobin A1c 01/12/23 E11.9 - Type 2 diabetes mellitus without complications Vitamin D 25-OH Total 6 Months E55.9 - Vitamin D deficiency, unspecified Microalbumin, Random (w Creat) 6 Months E11.9 - Type 2 diabetes mellitus without complications Comprehensive Ward. Panel Fast 6 Months E11.9 - Type 2 diabetes mellitus without complications Lipid Panel 6 Months E78.5 - Hyperlipidemia, unspecified XR DEXA axial skeleton 01/12/23 N95.9 - Unspecified menopausal and pe rimenopausal disorder SARS-CoV2/FLU/RSV 01/12/23 R09.89 - Other specified symptoms and signs involving the circulatory and respiratory systems Medications: New amoxicillin 500 mg PO BID 7 days 14 tabs 0RF Coding Level of Care Code Est Pt Prev Care 40-64y(13891) Diagnoses Physical exam Z00.00 Mild recurrent major depression F33.0 Diabetes mellitus E11.9 Time Spent (min) 31
[2023-01-12 16:38] VITALS: BP 120/82; BMI 28.7
== END 2023-01-12 17:12 | disposition home or self-care (01) ==
LOC: HO.HMGH 16:33
PROVIDERS: PCP Internal Medicine; Visit Provider Internal Medicine
DX: E11.9 Type 2 diabetes mellitus without complications (principal)
CPT/HCPCS: 83036; 99396

== ENCOUNTER 2023-01-12 17:15 | Outpatient (REF) | payer OTHER, SELFPAY ==
[2023-01-12 18:26] LABS: Influenza A PCR NEGATIVE (Negative); Influenza B PCR NEGATIVE (Negative); Resp Syncy Virus RNA Qual PCR NEGATIVE (Negative); SARS COV2 PCR INHOUSE POSITIVE (Negative)
== END 2023-01-12 17:16 | disposition home or self-care (01) ==
LOC: HO.LAB 17:15
PROVIDERS: PCP Internal Medicine; Visit Provider Internal Medicine
DX: Z11.52 Encounter for screening for COVID-19 (principal); R09.89 Other specified symptoms and signs involving the circulatory and respiratory systems
CPT/HCPCS: 0241U

== ENCOUNTER 2023-02-21 07:55 | Outpatient (REF) | payer OTHER, SELFPAY ==
--- NOTE | ~2023-02-21 | MM_ITS ---
EXAMINATION: BONE DENSITOMETRY CLINICAL INDICATION: Unspecified menopausal and perimenopausal disorder. COMPARISON: Baseline BD dated 03/25/2016. TECHNIQUE: Using a [employer] Power DXA System (software version: 13.1) manufactured by [employer], dual-energy x-ray absorptiometry was performed of the lumbar spine and left hip. The images are of good technical quality. Summary results are attached. FINDINGS: LEFT FEMUR, NECK: Current: BMD 0.728 g/cm2, Z-score -1.1, T-score -2.2, osteopenia. Baseline: BMD 0.770 g/cm2. LEFT FEMUR, TOTAL: Current: BMD 0.885 g/cm2, Z-score -0.2, T-score -1.0, normal, 5.1% increase from baseline (<5% change is not significant). Baseline: BMD 0.842 g/cm2. AP SPINE L1-L4: Current: BMD 1.146 g/cm2, Z-score 0.7, T-score -0.3, normal, 2.0% decrease from baseline (<5% change is not significant). Baseline: BMD 1.169 g/cm2. IDENTIFIED RISK FACTORS: Menopause. HISTORY OF FRACTURE: None listed. MEDICATIONS: None listed. MM/XR DEXA axial skeleton IMPRESSION: 1. DIAGNOSIS: Osteopenia based on the lowest T-score value of -2.2 in the femoral neck applying World Health Organization criteria. 2. 10-YEAR FRACTURE RISK PREDICTION, FRAX: Major osteoporotic fracture (clinical spine, forearm, hip or shoulder) 10.0%. Hip fracture 1.5%. 3. Treatment Recommendations: NOF guidelines recommend consideration for treatment in postmenopausal women and men age 50 and older presenting with the following: -A hip or vertebral (clinical or morphometric) fracture. -T-score less than or equal to -2.5 at the femoral neck or spine after appropriate evaluation to exclude secondary causes. -Low bone mass at the hip or spine and a 10-year fracture probability by FRAX of greater than or equal to 3% for hip fracture or greater than or equal to 20% for major osteoporotic fracture based on the [place] adapted WHO algorithm. 4. Other Recommendations: All treatment decisions require clinical judgment and consideration of individual patient factors, including patient preferences, comorbidities, previous drug use, risk factors not captured in the FRAX model (e.g. frailty, falls, vitamin D deficiency, increased bone turnover, interval significant decline in bone density) and possible under or overestimation of fracture risk by FRAX. Additional medical evaluation for secondary cause of low bone mineral density may be appropriate. FUTURE SCAN RECOMMENDATION: People with diagnosed cases of osteoporosis or at high risk for fracture should have regular bone mineral density tests. For patients eligible for Medicare, routine testing is allowed once every 2 years. The testing frequency can be increased to one year for patients who have rapidly progressing disease, those who are receiving or discontinuing medical therapy to restore bone mass, or have additional risk factors.
== END 2023-02-21 07:56 | disposition home or self-care (01) ==
LOC: HO.MAMMO 07:55
PROVIDERS: PCP Internal Medicine; Visit Provider Internal Medicine
DX: Z13.820 Encounter for screening for osteoporosis (principal); Z78.0 Asymptomatic menopausal state
CPT/HCPCS: 77080

== ENCOUNTER 2023-06-13 08:52 | Outpatient (REF) | payer OTHER, SELFPAY ==
--- NOTE | 2023-06-13 10:49 | MHC.AU.HA3 ---
Hearing Instrument Follow-Up- Binaural Date of Visit: 06/13/23 Right Ear: Make, Model, Color, Serial Number: Tracey Schwartzo P 70-R Ashleigh Ramirez #[id number] Theater Usher Repair Warranty: 06/28/2023 Theater Usher Loss and Damage Warranty: 06/28/2023 [facility] Service Plan: 06/28/2023 Battery Size: 13 Insurance Law Specialist/Slim Tube: Size 1 Power Earmold/Dome/CShell/SlimTip:Phonak Canal Lock C-Shell #[id number] remake warranty 07/19/2022 Type of Wax Guard: CeruStop Dispensed By: [facility] Date of Fittin04/10/2020 Left Ear: Make, Model, Color, Serial Number: Tracey Minayaeo P 70-R Ashleigh Ramirez #[id number] Theater Usher Repair Warranty: 06/28/2023 Theater Usher Loss and Damage Warranty: 06/28/2023 [facility] Service Plan: 06/30/2023 Battery Size: 13 Insurance Law Specialist/Slim Tube: Size 1 P Earmold/Dome/CShell/SlimTip: Phonak Canal Lock C-Shell #[id number] remake warranty 07/19/2022 Type of Wax Guard: CeruStop Dispensed By: [facility] Date of Fittin04/10/2020 Follow-Up Summary: Here for evaluation. Reports not hearing as well as she would like, increases volume every day. Hearing is stable. Cleaned and checked aids, changed wax guards. Listening check positive. Checked settings. Frequency lowering was very strong. Turned off frequency lowering and ran feedback senior property manager. Namrata reported my voice sounded sharper and clearer with this change. Advised to try these settings and return for a follow up if she isn't happy with this change. Discussed approaching end of service plan and charges she could incur in the future. Recommendations: Recommendations: Return for JUAREZ follow up as scheduled. Diagnosis Code(s): Primary Diagnosis: H90.3 Bilateral Sensorineural Hearing Loss Signature: Provider: Bhupendra Anthony, CCC-A
== END 2023-06-13 08:53 | disposition home or self-care (01) ==
LOC: HO.SH 08:52
PROVIDERS: Visit Provider Internal Medicine
DX: Z01.118 Encounter for examination of ears and hearing with other abnormal findings (principal); H90.3 Sensorineural hearing loss, bilateral
CPT/HCPCS: 92552; 92556

== ENCOUNTER 2023-06-27 15:01 | Outpatient (REF) | payer SELFPAY ==
--- NOTE | 2023-06-27 15:28 | MHC.AU.HA3 ---
Hearing Instrument Follow-Up- Binaural Date of Visit: 06/27/23 Right Ear: Make, Model, Color, Serial Number: Tracey Schwartzo P 70-R Ashleigh Ramirez #[id number] Nut Sorter Repair Warranty: 06/28/2023 Nut Sorter Loss and Damage Warranty: 06/28/2023 [facility] Service Plan: 06/28/2023 Battery Size: 13 Final Inspector Paper/Slim Tube: Size 1 Power Earmold/Dome/CShell/SlimTip:Phonak Canal Lock C-Shell #[id number] remake warranty 07/19/2022 Type of Wax Guard: CeruStop Dispensed By: [facility] Date of Fittin04/10/2020 Left Ear: Make, Model, Color, Serial Number: Tracey Minayaeo P 70-R Ashleigh Ramirez #[id number] Nut Sorter Repair Warranty: 06/28/2023 Nut Sorter Loss and Damage Warranty: 06/28/2023 [facility] Service Plan: 06/30/2023 Battery Size: 13 Final Inspector Paper/Slim Tube: Size 1 P Earmold/Dome/CShell/SlimTip: Phonak Canal Lock C-Shell #[id number] remake warranty 07/19/2022 Type of Wax Guard: CeruStop Dispensed By: [facility] Date of Fittin04/10/2020 Follow-Up Summary: Recently seen for eval and hearing aid adjustment. Reports the adjustments are working well for her. Notes that since her last visit on 06/12, hearing aids have cut out during phone calls. Deleted all pairings and reconnected aids to phone and mis. Everything appears connected at this time. Recommendations: Recommendations: Patient will call if problems persist. Diagnosis Code(s): Primary Diagnosis: H90.3 Bilateral Sensorineural Hearing Loss Signature: Provider: Bhupendra Anhtony, [facility]
== END 2023-06-27 15:02 | disposition home or self-care (01) ==
LOC: HO.HAP 15:01
PROVIDERS: Visit Provider Internal Medicine
DX: Z13.89 Encounter for screening for other disorder (principal)

== ENCOUNTER 2023-06-30 08:57 | Outpatient (REF) | payer OTHER, SELFPAY | END 2023-06-30 08:58 | disposition home or self-care (01) | LOC: HO.MAMMO 08:57 | PROVIDERS: PCP Internal Medicine; Visit Provider Internal Medicine | DX: Z12.31 Encounter for screening mammogram for malignant neoplasm of breast (principal) | CPT/HCPCS: 77063; 77067 ==

== ENCOUNTER → 2023-06-30 09:15 | Outpatient (BNV) | payer OTHER, SELFPAY | PROVIDERS: PCP Internal Medicine; Visit Provider Radiology Diagnostic Radiology | DX: Z12.31 Encounter for screening mammogram for malignant neoplasm of breast (principal) | CPT/HCPCS: 77063; 77067 ==

== ENCOUNTER 2023-07-28 08:29 | Outpatient (REF) | payer OTHER, SELFPAY ==
[2023-07-30 22:53] LABS: TS Negative Control Passed; TS Panel A 0; TS Panel B 0; TS Positive Control Passed; TSpotTB Negative (Negative)
[2023-07-31 21:38] LABS: Mumps Virus IgG Antibody >300.00 AU/mL; Rubeola IgG (Measles) >300.00 AU/mL
== END 2023-07-28 08:30 | disposition home or self-care (01) ==
LOC: HO.HMGCLDS 08:29
PROVIDERS: PCP Internal Medicine; Visit Provider Internal Medicine
DX: Z01.84 Encounter for antibody response examination (principal); Z11.1 Encounter for screening for respiratory tuberculosis
CPT/HCPCS: 36415; 86481; 86735; 86762; 86765

== ENCOUNTER 2023-08-01 16:06 | Outpatient (REF) | payer OTHER, SELFPAY ==
--- NOTE | ~2023-08-01 | CT_ITS ---
EXAMINATION: CT LOW-DOSE SCREENING CHEST WITHOUT CONTRAST CLINICAL INFORMATION: Personal history of nicotine dependence. The patient has a 88 pack-year history of smoking, having quit 4 years ago. COMPARISON: CT chest 05/27/2022. X-ray chest 04/22/2022. TECHNIQUE: Multidetector volumetric CT imaging of the chest is performed on a Siemens SOMATOM Definition scanner without contrast using low dose technique. Additional 2D coronal and sagittal reformatted images and axial 3D maximum intensity projection (MIP) images are generated on the CT workstation. This CT examination was performed using dose optimization techniques as appropriate, variously including the following: *Automated exposure control *Adjustment of mA and/or kV according to patient size (this includes techniques or standardized protocols for targeted exams where dose is matched to indication/reason for exam; i.e. extremities or head) *Use of iterative reconstruction technique TOTAL EXAM DLP: 41 mGy-cm. CTDIvol: 1.34 mGy. FINDINGS: PULMONARY NODULES: No suspicious pulmonary nodules. LUNGS: Lungs bilaterally symmetrically expanded. There is [id number] emphysema and mild bronchial thickening without bronchiectasis. No effusion or pneumothorax. Central airways patent. MEDIASTINUM: No mediastinal, hilar or axillary adenopathy or free fluid collection. CORONARY ARTERY CALCIFICATION: None visualized on this study. THYROID GLAND: Unremarkable to the extent seen. CARDIOVASCULAR STRUCTURES: Aortic and heart size normal. No pericardial effusion. CHEST WALL/AXILLA: Unremarkable. UPPER ABDOMEN: Included portions of the solid organs in the upper abdomen unremarkable on noncontrast imaging. Surgical clips are present in the gallbladder fossa. OSSEOUS STRUCTURES: No suspicious focal findings. CT/CT lung screening IMPRESSION: 1. No evidence of pulmonary malignancy. 2. [id number] emphysema. ASSESSMENT: 1. Lung-RADS Category 1: Negative. There are no nodules or there are definitely benign nodules. 2. Lung-RADS Category S: Negative. There are no clinically significant or potentially clinically significant findings not related to the lungs requiring urgent additional evaluation. RECOMMENDATION: Continued routine annual low-dose CT lung screening in 1 year is recommended. An order for CT CHEST LOW DOSE CANCER SCREENING ([id number]) can be placed.
== END 2023-08-01 16:07 | disposition home or self-care (01) ==
LOC: HO.CT 16:06
PROVIDERS: PCP Internal Medicine; Visit Provider Physician Assistant Medical
DX: Z12.2 Encounter for screening for malignant neoplasm of respiratory organs (principal); Z87.891 Personal history of nicotine dependence
CPT/HCPCS: 71271

== ENCOUNTER 2023-08-09 16:06 | Outpatient (REF) | payer OTHER, SELFPAY ==
[2023-08-11 03:46] LABS: HBc Num1 0.11 S/CO (0.00-0.79); HBsAGNum1 0.25 S/CO (0.00-0.99); Hepatitis B Core Antibody Nonreactive (Nonreactive); Hepatitis B Surface Antigen Negative (Negative); ~Hepatitis B Surface Antibody REACTIVE (Nonreactive)
== END 2023-08-09 16:07 | disposition home or self-care (01) ==
LOC: HO.LAB 16:06
PROVIDERS: PCP Internal Medicine; Visit Provider Internal Medicine
DX: Z01.84 Encounter for antibody response examination (principal)
CPT/HCPCS: 36415; 86704; 86706; 86787; 87340

== ENCOUNTER 2023-12-16 08:00 | Outpatient (REF) | payer BC, SELFPAY ==
[2023-12-16 11:54] LABS: Creatinine Urine 51.62 mg/dL; Microalbum/Creatinine Ratio Ur 17.4 ug/mg cr (<30)
[2023-12-16 11:55] LABS: Alanine Aminotransferase 36 U/L (0-31); Alkaline Phosphatase 57 U/L (39-117); Anion Gap 13 (12-20); Aspartate Amino Transferase 25 U/L (5-31); Bilirubin Total 0.2 mg/dL (0.0-1.0); Blood Urea Nitrogen 12 mg/dL (9-16); Calcium 9.6 mg/dL (8.4-10.2); Carbon Dioxide 25 mmol/L (22-29); Chloride 111 mmol/L (96-108); Cholesterol 126 mg/dL (<200); Estimated Glomerular Filt Rate > 60; Glucose Fasting 119 mg/dL (60-99); HDL Cholesterol 55 mg/dL (>40); LDL Cholesterol Calculated 55 mg/dL (<100); Potassium 4.7 mmol/L (3.3-5.1); Sodium 144 mmol/L (135-145); Total Protein 7.1 g/dL (6.5-8.0); Triglycerides 84 mg/dL (<150); Vitamin D 25-OH Total 51.7 ng/mL (>30)
== END 2023-12-16 08:01 | disposition home or self-care (01) ==
LOC: HO.HMGCLDS 08:00
PROVIDERS: PCP Internal Medicine; Visit Provider Internal Medicine
DX: E11.9 Type 2 diabetes mellitus without complications (principal); E55.9 Vitamin D deficiency, unspecified; E78.5 Hyperlipidemia, unspecified
CPT/HCPCS: 36415; 80053; 80061; 82043; 82306; 82570

== ENCOUNTER 2023-12-19 16:21 | Outpatient (AMB) | payer OTHER, SELFPAY ==
--- NOTE | 2023-12-19 16:25 | MHC.PC.OV ---
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: No Accompanied by: Self / Same As Patient Allergies acetaminophen [From PERCOCET] Allergy (Intermediate, Verified 12/19/23 16:40) HIVES oxycodone [From PERCOCET] Allergy (Intermediate, Verified 12/19/23 16:40) HIVES Medication List - Last Reconciled 12/19/23 by Kalyani Mujica MD blood sugar diagnostic (FreeStyle Lite Strips) Use 1 strip once a day blood-glucose meter (FreeStyle Lite Meter kit) As directed bupropion HCl XL 150 mg PO QAM 90 days buspirone 10 mg PO TID 90 days calcium carbonate 500 mg PO BID 90 days cholecalciferol (vitamin D3) 25 mcg PO DAILY 90 days lancets (FreeStyle Lancets) Use 1 lancet once a day metformin 500 mg PO BID 90 days oxybutynin chloride 5 mg PO BID 90 days rosuvastatin 20 mg PO DAILY 90 days Tobacco use date assessed: 12/19/23 Dental Screening Dental Screen Date: 12/19/23 Did you have a dental visit in the last 12 months?: No Did you have a dental problem in the last 6 months where you did not have access to dental care?: No Was dental information given to patient?: Patient has dentist HPI HPI Comments History of Present Illness Details This is a 63-year-old female with diabetes mellitus type 2, dyslipidemia, mild recurrent major depression, anxiety and osteopenia that comes today for follow-up on her conditions. A1c within goal and I will decrease metformin to once a day. LDL within goal. Depression stable with bupropion. Anxiety well controlled with buspirone. DEXA scan done 2023 shows osteopenia and she is on calcium with vitamin-D. Mammogram done 2023. Denies any chest pain or shortness on breath. Would like to see antitank assault gunner for her overweight. She complains of bitemporal headaches that started about 3 weeks ago and are associated with stress. No neurological deficit associated with it. No photosensitivity. It happens 2 to 3 times per week. [facility] Medical History (Updated 12/19/23 @ 16:56 by Kalyani Mujica MD) Dyslipidemia Mild recurrent major depression PROSPER (generalized anxiety disorder) History of alcohol abuse Osteopenia Personal history of nicotine dependence Personal history of COVID-19 Urinary incontinence Hearing loss Surgical History History of colonoscopy History of surgery History of section History of arthroscopy of right knee History of laparoscopic cholecystectomy Family History Father Hypertension Mother CVD (cardiovascular disease) Paternal Grandmother Diabetes Social History Housing: Apartment Alcohol intake: former Patient Tobacco Use Status: Former Tobacco user Tobacco use type: Cigarette Years Smoked: (former smoker - onset 14yo, 1ppd x 43yrs, 40pyh - quit 2017) e-Cigarette/Vaping Use: Never Used Second Hand Smoke Exposure: No service: No Current occupational status: employed Current occupational exposures/hazards: No Cognitive needs: No Hearing needs: No Vision needs: Yes Questionnaire PHQ-9 Over the last 2 weeks, how often have you been bothered by any of the following problems? 1. Little interest or pleasure in doing things: not at all 2. Feeling down, depressed, or hopeless: not at all 3. Trouble falling or staying asleep, or sleeping too much: not at all 4. Feeling tired or having little energy: not at all 5. Poor appetite or overeating: not at all 6. Feeling bad about yourself - or that you are a failure or have let yourself or your family down: not at all 7. Trouble concentrating on things, such as reading the newspaper or watching television: not at all 8. Moving or speaking so slowly that other people could have noticed. Or the opposite - being so fidgety or restless that you have been moving around a lot more than usual: not at all 9. Thoughts that you would be better off or of hurting yourself in some way: not at all Total score: 0 Depression Screening Interpretation: Negative Depression Screening Done: Yes 77884 - PHQ-9 Billing: Yes Source: Developed by Drs. Jan Solano, Maria C B.WWilmar Zamorano and colleagues, with an educational dwaine from [employer]. Thrive Questionnaire Date Thrive assessed: 12/19/23 I am a: Patient What is your living situation today?: I have a steady place to live Within the past 12 months, did the food you bought not last and you didn't have the money to get more?: Never true Within the past 12 months, did you worry whether your food would run out before you got money to buy more?: Never true Do you have trouble paying for medicines?: No Do you have trouble getting transportation to medical appointments?: No Do you have trouble paying your heating and electricity bill?: No Do you have trouble taking care of your child, family member or friend?: No Do you have trouble with day-to-day activities such as bathing, preparing meals, shopping, managing finances, etc.?: No Are you currently unemployed and looking for a job?: No Are you interested in more education?: No Please select the resources that you would like help with: None Currently or been in a relationship where the following occur: No concerns reported THRIVE Score: 0 AUDIT C Alcohol Use Questionnaire (AUDIT-C) 1. How often do you have a drink containing alcohol?: Never Total Score: 0 Score Reviewed/Action Taken: No PROSPER-7 AMB Questionnaire PROSPER-7 Date PROSPER - 7 assessed: 12/19/23 Feeling nervous, anxious, or on edge: 0 = Not at all Not being able to stop or control worryin = Not at all Worrying too much about different things: 0 = Not at all Trouble relaxin = Not at all Being so restless that it is hard to sit still: 0 = Not at all Becoming easily annoyed or irritable: 0 = Not at all Feeling afraid as if something awful might happen: 0 = Not at all Total PROSPER-7 score (0-4 normal; 5-9 mild; 10-14 moderate; 15-21 severe): 0 Source: Developed by Drs. Jan Solano, Wilmar Gonzales and colleagues, with an educational dwaine from [employer]. PROSPER-7 Assessment Billing PROSPER-7 Assessment Tool: PROSPER-7 Assessment 84567 Review of Systems Const All systems reviewed & are unremarkable except as noted in HPI and below Reports headache(s) ENT Reports headache(s) Card Denies chest pain at rest, Denies chest pain with activity, Denies edema, Denies irregular heart rhythm, Denies claudication, Denies dyspnea, Denies dyspnea on exertion, Denies orthopnea, Denies paroxysmal nocturnal dyspnea and Denies slow heart rate Resp Denies cough, Denies dyspnea and Denies dyspnea on exertion GI Denies abdominal pain, Denies change in bowel habits, Denies excessive flatus, Denies nausea and Denies vomiting Neuro Reports headache(s) Physical exam (Primary Care) Vital Signs: Last Vital Signs BP 122/80 12/19/23 16:26 BMI result Body Mass Index 27.3 BMI Assessment/Plan discussion: High BMI High, discussed plan: lifestyle, weight reduction, dietary and physical activity Tobacco/Smoking Status: Tobacco use Status Tobacco use date assessed 12/19/23 12/19/23 16:36 Patient Tobacco Use Status Former Tobacco user 12/19/23 16:26 Tobacco use type Cigarette 12/19/23 16:26 e-Cigarette/Vaping Use Never Used 12/19/23 16:26 PHQ-9: PHQ-9 Score PHQ-9: Total score 0 12/19/23 16:36 Depression Screening Interpretation: Negative Thrive Assessment: Date of Thrive Assessment Date Thrive assessed 12/19/23 12/19/23 16:36 Currently or been in a relationship where the following occur: No concerns reported Resp Effort & Inspection: normal respiratory effort Auscultation: clear to auscultation bilaterally Cardio Jugular venous distension: no JVD Rate: regular rate Rhythm: regular rhythm Heart sounds: S1 normal heart sound present and S2 normal heart sound present Extrem General: Yes full ROM Office Procedures Flu Questionnaire Does the patient have a severe egg allergy?: No Results AMB Hemoglobin A1c AMB Hemoglobin A1c 5.0 % Last Edit by ABEL Gill on 12/19/23 16:39 Immunizations Fluarix Triv [id number] (PF) 45 mcg (15 mcg x 3)/0.5 mL IM syringe Performing Provider: Kalyani Mujica MD [place] [facility] [place] [facility] Documented (not given) by: ABEL Gill on 12/19/23 16:36 Reason Not Given: Patient Refused Results Reviewed Results Reviewed: Laboratory Last Values Hgb A1c (Clinic) 5.0 % (4.0-6.0) 12/19/23 16:24 Coding Level of Care Code Est Pt Level 4 (17878) Complex EM visit Add On G2211 Diagnoses Type 2 diabetes mellitus without complication, without long-term current use of insulin E11.9 Diabetes mellitus type: type 2 Diabetes mellitus intermodal customer service insulin use: without intermodal customer service use Diabetes mellitus complication status: without complication Mild recurrent major depression F33.0 PROSPER (generalized anxiety disorder) F41.1 Dyslipidemia E78.5 Osteopenia, unspecified location M85.80 Osteopenia location: unspecified Additional Codes PHQ-9 - 89199 - PHQ-9 Billing: Yes ([id number]) PROSPER-7 Assessment Billing - PROSPER-7 Assessment Tool: PROSPER-7 Assessment 36869 ([id number]) Time Spent (min) 22 Assessment & Plan Assessment & Plan (1) Diabetes mellitus: Code(s): E11.9 - Type 2 diabetes mellitus without complications Category: Medical Qualifiers: Diabetes mellitus type: type 2 Diabetes mellitus intermodal customer service insulin use: without intermodal customer service use Diabetes mellitus complication status: without complication Qualified Code(s): E11.9 - Type 2 diabetes mellitus without complications Plan: Decrease metformin. A1c goal is equal or less than 7%. Referral to antitank assault gunner. (2) Mild recurrent major depression: Code(s): F33.0 - Major depressive disorder, recurrent, mild Category: Medical Plan: Continue bupropion. (3) PROSPER (generalized anxiety disorder): Code(s): F41.1 - Generalized anxiety disorder Category: Medical Plan: Continue buspirone. (4) Dyslipidemia: Code(s): E78.5 - Hyperlipidemia, unspecified Category: Medical Plan: Continue statins. Repeat lipid panel. LDL goal is less than 70. (5) Osteopenia: Comment: (Bone Dexa Femoral T-score: -2.2 on 02/21/23) Code(s): M85.80 - Other specified disorders of bone density and structure, unspecified site Category: Medical Qualifiers: Osteopenia location: unspecified Qualified Code(s): M85.80 - Other specified disorders of bone density and structure, unspecified site Plan: Continue calcium with vitamin-D DEXA scan 2025. Orders: Orders AMB Hemoglobin A1c Today E11.9 - Type 2 diabetes mellitus without complications Influenza [id number] Immunization Today Z23 - Encounter for immunization Microalbumin, Random (w Creat) 4 Months R80.9 - Proteinuria, unspecified Vitamin D 25-OH Total 4 Months E55.9 - Vitamin D deficiency, unspecified Comprehensive Met. Panel 4 Months E11.9 - Type 2 diabetes mellitus without complications Lipid Panel 4 Months E78.5 - Hyperlipidemia, unspecified Referrals Nutrition/Dietitian Referral E11.9 - Type 2 diabetes mellitus without complications, E78.5 - Hyperlipidemia, unspecified Medications: Changed From metformin 500 mg PO BID 90 days 180 tabs 2RF E11.9 - Type 2 diabetes mellitus without complications To metformin 500 mg PO DAILY 90 days 90 tabs 2RF E11.9 - Type 2 diabetes mellitus without complications
[2023-12-19 16:26] VITALS: BP 122/80; BMI 27.3
== END 2023-12-19 16:52 | disposition home or self-care (01) ==
PROVIDERS: PCP Internal Medicine; Visit Provider Internal Medicine
DX: E11.9 Type 2 diabetes mellitus without complications (principal); F33.0 Major depressive disorder, recurrent, mild; F41.1 Generalized anxiety disorder; E78.5 Hyperlipidemia, unspecified; M85.80 Other specified disorders of bone density and structure, unspecified site; Z23 Encounter for immunization

== ENCOUNTER → 2023-12-19 16:21 | Outpatient (BNVA) | payer OTHER, SELFPAY | PROVIDERS: PCP Internal Medicine; Visit Provider Internal Medicine | DX: E11.9 Type 2 diabetes mellitus without complications (principal); F33.0 Major depressive disorder, recurrent, mild; F41.1 Generalized anxiety disorder; E78.5 Hyperlipidemia, unspecified; M85.80 Other specified disorders of bone density and structure, unspecified site | CPT/HCPCS: 83036; 90471; 96127; 99212 ==

== ENCOUNTER 2024-01-24 08:19 | Outpatient (AMB) | payer OTHER, SELFPAY ==
--- NOTE | 2024-01-24 08:27 | MHC.AMNUTRGE ---
VS Expanded 01/24/24 08:31 01/24/24 08:38 Height 4 ft 10 in 4 ft 10 in Weight 158 lb 4.67 oz 158 lb BMI 33.1 33.0 Intake Visit Reasons: T2DM/Confirmed Allergies acetaminophen [From PERCOCET] Allergy (Intermediate, Verified 12/19/23 16:40) HIVES oxycodone [From PERCOCET] Allergy (Intermediate, Verified 12/19/23 16:40) HIVES Nutrition Presentation Details: Pt presents for MNT for t2dm/hyperlipidemia food frequency fruit: 2-3/d ve /d starches> 20 fish: 1-2x/wk dairy: 3-4 physical activity: daily life BS Monitoring Most Recent Diabetes Results: Microalb/Creat Ratio 17.4 ug/mg cr (<30) 12/16/23 Cholesterol 126 mg/dL (<200) 12/16/23 HDL Cholesterol 55 mg/dL (>40) 12/16/23 Triglycerides 84 mg/dL (<150) 12/16/23 Creatinine 0.81 mg/dL (0.5-1.4) 12/16/23 Blood Urea Nitrogen 12 mg/dL (9-16) 12/16/23 Sodium 144 mmol/L (135-145) 12/16/23 Potassium 4.7 mmol/L (3.3-5.1) 12/16/23 Chloride 111 mmol/L (96-108) H 12/16/23 Carbon Dioxide 25 mmol/L (22-29) 12/16/23 Calcium 9.6 mg/dL (8.4-10.2) 12/16/23 AST 25 U/L (5-31) 12/16/23 ALT 36 U/L (0-31) H 12/16/23 Total Protein 7.1 g/dL (6.5-8.0) 12/16/23 Albumin 4.0 g/dL (3.5-5.0) 12/16/23 [id number]-Ep.Jeor Equation Height: 4 ft 10 in Weight: 158 lb Resting Metabolic Rate: 1175.59 Calculated Activity Level: Sedentary Calories Needed to Maintain Weight: 1410.71 Diagnosis Nutrition problem #1: food nutri know defi As related to (etiology) #1: diagnosis As evidenced by (sign/symptom) #1: knowledge deficit of diet [facility] Medical History Dyslipidemia Mild recurrent major depression PROSPER (generalized anxiety disorder) History of alcohol abuse Osteopenia Personal history of nicotine dependence Personal history of COVID-19 Urinary incontinence Hearing loss Surgical History History of colonoscopy History of surgery History of section History of arthroscopy of right knee History of laparoscopic cholecystectomy Family History Father Hypertension Mother CVD (cardiovascular disease) Paternal Grandmother Diabetes Social History Housing: Apartment Alcohol intake: former Patient Tobacco Use Status: Former Tobacco user Tobacco use type: Cigarette Years Smoked: (former smoker - onset 14yo, 1ppd x 43yrs, 40pyh - quit 2017) e-Cigarette/Vaping Use: Never Used Second Hand Smoke Exposure: No service: No Current occupational status: employed Current occupational exposures/hazards: No Cognitive needs: No Hearing needs: No Vision needs: Yes Assessment & Plan Assessment & Plan (1) Diabetes mellitus: Code(s): E11.9 - Type 2 diabetes mellitus without complications Category: Medical Qualifiers: Diabetes mellitus type: type 2 Diabetes mellitus assisted insulin use: without emt intermediate use Diabetes mellitus complication status: without complication Qualified Code(s): E11.9 - Type 2 diabetes mellitus without complications Plan: Wt: 72 Kg ( 01/29 ) Est kcal needs as per MSJ: 1400 (40% carb, 30% protein/fat) Est fluid needs as per 25-30 ml/d: 2200 Est prot per day as per 1 g/kg bw: 72 Recommend fiber intake : 8-10 g per day and gradually increase to 25-28 g per day for women and 35-38 g for men or as tolerated Recommend sodium intake per day : less than 2300 mg Educated patient on: ( R = reviewed V = verbalizes understanding N/R = needs review N/A = not applicable Food sources of carbohydrate, adequate serving sizes and its role in various health conditions: R Differences between complex carbohydrates a simple carbohydrates, role of fiber in diet: R Lean protein sources of foods: R V NR Differences between types of fats and role in diet (mono on saturated fat fatty acids, saturated fatty acids, trans fats): R Food sources of sodium in salt and healthy modifications for heart health in kidney health: R V R/V Vitamins and minerals: R V N/R Healthy plate method concept: R V N/R Physical activity: Benefits a precaution: R V N/R Hypoglycemia protocol (rule of 15): R V N/R Dietary prevention of Hyperglycemia: R ,V Patient Instructions: work on balancing meals following healthy plate method , reduce total carbs to 45 g or less per meals (3 meals/day) choosing fiber rich foods Limit snack to less than 3 a day, 0-20 g carb Drink water with meals and snacks Coding Level of Care Code Nutr Indiv Intake (50665) Diagnoses Type 2 diabetes mellitus without complication, without long-term current use of insulin E11.9 Diabetes mellitus type: type 2 Diabetes mellitus assisted insulin use: without assisted use Diabetes mellitus complication status: without complication Time Spent (min) 30
--- OUTSIDE RECORDS SUMMARY | 2024-01-24 08:29 | XMS_ITS | Continuity of Care Document ---
Author Organization [facility] Jennifer [facility] Address [address] [place] [address], [address] [place] [address]- Care Team Providers Care Public Bath Attendant Name Role Phone Nick Mujica MD, Kalyani Melchor Primary Care Physician Encounter [facility] Date(s): 12/13/23 - 01/12/24 [facility] [employer] [facility] [address] [place] [address], [address] [place] [address]- Encounter Type: Triage Allergies, Adverse Reactions, Alerts Substance Criticality Severity Reaction Reaction Severity Status Percocet hives Active Medications ALPRAZolam 0.5 mg oral tablet 0.5 mg, 1, tablet, By Mouth, 2 times a day, Refills 0, Maintenance, 12/20/23 4:55:00 PM EST, Partial fill upon patient request if the prescription is for a schedule II opioid drug. Start Date: 12/20/23 Status: Ordered Repeat number: 1 bcp bcp, 07/18/06 4:25:34 PM EDT Start Date: 07/18/06 Status: Ordered Repeat number: 1 buPROPion 150 mg/24 hours (XL) oral tablet, extended release 1 tablet = 150 mg, By Mouth, Every 24 hours, # 30 tablet, 0 Refills, Maintenance, 12/20/23 4:55:00 PM EST, ER Tablet, Partial fill upon patient request if the prescription is for a schedule II opioiddrug. Start Date: 12/20/23 Status: Ordered Quantity: 30.0 Unit: tablet Repeat number: 1 calcium carbonate 600 mg oral tablet 600 mg, 1, tablet, By Mouth, 2 times a day, 0 Refills Start Date: 07/18/06 Status: Ordered Repeat number: 1 Detrol LA 4 mg oral capsule, extended release 4 mg, 1, capsule, By Mouth, Daily, 0 Refills Start Date: 07/18/06 Status: Ordered Repeat number: 1 metFORMIN 500 mg oral tablet 1 tablet = 500 mg, By Mouth, 2 times a day, # 180 tablet, 0 Refills, Maintenance, 12/20/23 4:55:00 PM EST, Tablet, Partial fill upon patient request if the prescription is for a schedule II opioid drug. Start Date: 12/20/23 Status: Ordered Quantity: 180.0 Unit: tablet Repeat number: 1 Multivitamin Tablet 1 tablet, By Mouth, Daily, 07/18/06 4:24:41 PM EDT Start Date: 07/18/06 Status: Ordered Repeat number: 1 oxybutynin 5 mg oral tablet 1 tablet = 5 mg, By Mouth, 3 times a day, # 30 tablet, 0 Refills, Maintenance, 12/20/23 4:54:00 PM EST, Tablet, Partial fill upon patient request if the prescription is for a schedule II opioid drug. Start Date: 12/20/23 Status: Ordered Quantity: 30.0 Unit: tablet Repeat number: 1 rosuvastatin 20 mg oral tablet 1 tablet = 20 mg, By Mouth, Daily, # 60 tablet, 0 Refills, Maintenance, 12/20/23 4:55:00 PM EST, Tablet, Partial fill upon patient request if the prescription is for a schedule II opioid drug. Start Date: 12/20/23 Status: Ordered Quantity: 60.0 Unit: tablet Repeat number: 1 Problem List Condition Confirmation Course Effective Dates Status Health St atus Informant Obese class I Confirmed Active Social History Social History Type Response Smoking Status Former smoker, quit more than 30 days ago entered on: 12/20/23 Sex Sex Representation Female (finding) Patient Care team information Care Team Personnel Name: Nick Mujica MD , Kalyani Melchor Position: Reference Physician Member Role: PCP Address: [address] [place] [address]- Telecom: Care Team Related Persons Name: SUSAN GHOSH Insurance Providers Guarantor name: DAO GHOSH Health Plan Information #: 1 Payer: [employer] Member Number: NA Policy Number: NA Group Number: NA
--- OUTSIDE RECORDS SUMMARY | 2024-01-24 08:29 | XMS_ITS | Continuity of Care Document ---
Author Organization [facility] [place] Jennifer n[employer] Address [address] [place] [address], [address] [place] [address]- Care Team Providers Care Mri Manager Name Role Phone Nick Mujica MD, Karin Primary Care Physician [phone] [id number](s[facility] 12/20/23 - 12/27/23 [facility] [employer] [facility] [address], [address] [place], [place] [address] Attending Physician: Karin Khan MD Encounter Type: Office Visit Allergies, Adverse Reactions, Alerts Substance Criticality Severity [...] atus Informant Obese class I Confirmed Active Procedures Procedure Date Related Diagnosis Body Site Status section Complete d Vital Signs Most recent to oldest [Reference Range]: 1 Height 153 cm (12/20/23 4:25 PM) Weight 71.2 kg (12/20/23 4:25 PM) Pulse Rate [55-90 bpm] 69 bpm (12/20/23 4:25 PM) Body Mass Index [18.5-24.99 kg/m2] 30.42 kg/m2 *>HHI* (12/20/23 4:25 PM) Blood Pressure [90-138/55-84 mm Hg] 119/ 46mm Hg (12/20/23 4:25 PM) Blood pressure sites Arm, left (12/20/23 4:25 PM) Dry Weight 71.2 kg (12/20/23 4:25 PM) Weight Obtained Via Standing scale (12/20/23 4:25 PM) Dry Weight Obtained Via Standing scale (12/20/23 4:25 PM) Social History Social History Type Response Smoking Status Former smoker, quit more than 30 days ago entered on: 12/20/23 Sex Sex Representation Female (finding) Patient Care team information Care Team Personnel Name: Nick Mujica MD , Kalyani Melchor Position: Reference Physician Member Role: PCP Address: [address] [place] [address] [address] [place], [place] [address] Telecom: Care Team Related Persons Name: SUSAN GHOSH Insurance Providers Guarantor name: DAO AUGIE Health Plan Information #: 4 Payer: [employer] Member Number: [id number] Policy Number: NA Group Number: [id number] Health Plan Information #: 1 Payer: [employer] Member Number: [id number] Policy Number: NA Group Number: [id number] Health Plan Information #: 2 Payer: O [employer] Member Number: [id number] Policy Number: NA Group Number: NA Health Plan Information #: 3 Payer: [employer] O Member Number: [id number] Policy Number: NA Group Number: [id number]
--- OUTSIDE RECORDS SUMMARY | 2024-01-24 08:29 | XMS_ITS | Continuity of Care Document ---
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 Role Phone Nick Mujica MD, Karin Primary Care Physician [id number] Date[facility]s): [facility]/15/24 - 01/22/24 [facility] [address] [facility], [address] [place], [place] [address] Attending Physician: Ximena Roman MD Referring Physician: Karin Khan MD Encounter Type: Office [...] Date: 07/18/06 Status: Ordered Repeat number: 1 cephalexin monohydrate 500 mg oral capsule 1 capsule = 500 mg, By Mouth, Every 12 hours, for 5 days, # 10 capsule, 0 Refills, Acute 01/26/24 11:34:00 AM EST, 01/21/24 11:34:00 AM EST, Capsule, [id number], Partial fill upon patient request if the prescription is for a schedule II opioid drug., 153, cm, 01/21/24 8:17:00 EST, Height, 71.2, kg, 12/20/23 16:25:00 EST, Dry Weight Start Date: 01/21/24 Stop Date: 01/26/24 Status: Ordered Quantity: 10.0 Unit: capsule Repeat number: 1 cephalexin monohydrate 500 mg oral tablet 1 tablet = 500 mg, By Mouth, 2 times a day, for 5 days, # 10 tablet, 0 Refills, Acute 01/26/24 8:33:00 AM EST, 01/21/24 8:33:00 AM EST, Tablet, [facility][id number], Okay to dispense capsules if required by insurance, 153, cm, 01/21/24 8:17:00 EST, Height, 71.2, kg, 12/20/23 16:25:00 EST, Dry Weight Start Date: 01/21/24 Stop Date: 01/26/24 Status: Ordered Quantity: 10.0 Unit: tablet Repeat number: 1 Detrol LA 4 mg [...] List Condition Confirmation Course Effective Dates Status H ealth Status Informant Obese class I Confirmed Active Overactive bladder Confirmed Active Postmenopausal Confirmed Active Diabetes mellitus, type 2 Confirmed Active Social History Social History Type Response Smoking Status Former smoker, quit more than 30 days ago entered on: 12/20/23 Sex Sex Representation Female (finding) Radiology * Event Display: CAROLINA Eggs Inspector Transvaginal, Complete * Event Display: [place] Eggs Inspector Transvaginal, Complete Authored Date: [id number] Gynecological Report Signed Final 01/15/2024 8:32 PM Patient Info ID: [id number] : 1960 (63 y)(F) Name: DAO GHOSH Date: 01/15/2024 1:40 PM Performed By Attending: Lenka Blanco MD Referred By: Lauri Khan MD Performed By: Chelly Cowan [facility] Ref Address: [facility] Location: [address] Service(s) Provided Code MILL REPRESENTATIVE Vaginal [id number] (FBE=[id number]) Indications Code Postmenopausal bleeding N95.0 Diabetes mellitus E11.9 History ------- Age: 63 Uterus ------ Uterus: Present Position: Anteverted Size (cm) L: 3.84 W: 3.13 H: 2.98 Volume (ml): 18.75 Description: Small and heterogeneous Endometrium Endometrium: Normal appearance Thickness (mm): 2.8 Comment: Small calcifications seen within the endo. Cervix ------ Normal appearance. Does not glide freely within tbhe pelvis. [place] No fluid was visualized Right Ovary Status: Not Visualized Comment: No adnexal masses seen. Left Ovary Staus: Visualized Size (cm) L: 2.31 W: 1.1 H: 1.23 Vol.(ml): 1.64 Comment: No adnexal masses seen. Comments -------- Transvaginal ultrasound performed. The uterus is anteverted. The cervix appears normal. The endometrium is thin measuring 2.8 mm with small echogenic foci seen likely representing calcifications. The right ovary is not visualized. The left ovary appears normal. No adnexal masses bilaterally. Impression Unremarkable pelvic ultrasound Recommendations Clinical follow up Lenka Blanco MD Electronically Signed Final Report 01/15/2024 8:32 PM * Event Display: [place] Eggs Inspector Transvaginal, Complete Authored Date: Please click on pdf link to open report Patient Care team information Care Team Personnel Name: Nick Mujica MD , Kalyani Melchor Position: Reference Physician Member Role: PCP [address]: [address] [place] [address] [address] [place] [address] Telecom: Care Team Related Persons Name: SUSAN GHOSH Insurance Providers Guarantor name: DAO AUGIE Health Plan Information #: 1 Payer: [employer] Member Number: [id number] Policy Number: NA Group Number: [id number] Health Plan Information #: 2 Payer: [employer] Member Number: [id number] Policy Number: NA Group Number: [id number]
--- OUTSIDE RECORDS SUMMARY | 2024-01-24 08:30 | XMS_ITS | Patient Health Record ---
Author Organization 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 Name Role Phone Kalyani Carr Primary Care Provider Johnny Buckner Jr Unavailable ALLERGIES Allergen (clinical drug ingredient) Drug/Non Drug Allergy documented on EMR Reaction Allergy Type Onset Date Status acetaminophen / oxycodone Percocet hives Drug Allergy Active REASON FOR REFERRAL No Information MEDICATIONS Medication SIG (Take, Route, Fr equency, Duration) Notes Start Date End Date Status Tolterodine Tartrate ER Active Vitamin D Active Calcium Active Vitamin B 12 Active Ibuprofen 600 MG Orally PRN Ac tive buPROPion HCl ER (XL) Active busPIRone HCl Active IMMUNIZATIONS Vaccine Route Administration Date Status Comme nts Influenza Unknown 11/07/2018 Administered SOCIAL HISTORY Tobacco Use: Social History Observation Description Date Details (start date - stop date) Former Smoker NA - 02/05/2018 Sex Assigned At : Social History Observation Description Sex Assigned At Unknown Tobacco Use/Smoking Question Answer Notes Patient is a former smoker When did you start smoking? 14 years old When did you stop smoking? 02/05/2018 How long has it been since y ou last smoked? > 10 years Additional Findings: Tobacco User Heavy cigarett e smoker (20-39 cigs/day) Additional Findings: Tobacco Non-User Ex-cigaret te smoker Alcohol Screen Question Answer Notes Did you have a drink containing alcohol in the p ast year? No Points 0 Interpretation Negative PROBLEMS Problem Type ICD Code Onset Dates Problem Status W/U Status Risk SNOMED Code Notes Problem Liver cyst (K76.89) Active confirmed 03172439 Problem Elevated liver enzymes (R74.8) Active confirmed 964496034 PLAN OF TREATMENT Pending Test Test Name Order Date LIVER PROFILE 10/16/2019 Insurance Providers Payer Name Payer Address Payer Phone Subscriber Number Group Number Insured Name Patient Relationship to Insured Coverage Start Date Coverage End Date [employer] PPO [address] [place] [phone] [id number] DAO GHOSH Self - patient is the insured MEDICAL (GENERAL) HISTORY Medical History History ICD Code depression overactive bladder (OAB) anxiety Surgical History Surgery Date(Month/Year) arthroscopic knee surgery 2008 section 1983 cholecystectomy 2010
[2024-01-24 08:31] VITALS: BMI 33.1
[2024-02-11 09:48] VITALS: BMI 33.0
== END 2024-01-24 09:07 | disposition home or self-care (01) ==
PROVIDERS: PCP Internal Medicine; Visit Provider Dietitian, Registered
DX: E11.9 Type 2 diabetes mellitus without complications (principal)

== ENCOUNTER → 2024-01-24 08:19 | Outpatient (BNVA) | payer OTHER, SELFPAY | PROVIDERS: PCP Internal Medicine; Visit Provider Dietitian, Registered | DX: E11.9 Type 2 diabetes mellitus without complications (principal) | CPT/HCPCS: 97802 ==

== ENCOUNTER 2024-04-29 06:06 | Outpatient (REF) | payer MEDICAID, SELFPAY ==
[2024-04-29 11:16] LABS: Alanine Aminotransferase 35 U/L (0-31); Albumin Level 3.9 g/dL (3.5-5.0); Alkaline Phosphatase 60 U/L (39-117); Anion Gap 12 (12-20); Aspartate Amino Transferase 30 U/L (5-31); Bilirubin Total 0.3 mg/dL (0.0-1.0); Blood Urea Nitrogen 9 mg/dL (9-16); Calcium 9.5 mg/dL (8.4-10.2); Carbon Dioxide 25 mmol/L (22-29); Chloride 111 mmol/L (96-108); Cholesterol 124 mg/dL (<200); Estimated Glomerular Filt Rate > 60; Glucose Random 133 mg/dL (60-115); HDL Cholesterol 51 mg/dL (>40); LDL Cholesterol Calculated 56 mg/dL (<100); Potassium 4.7 mmol/L (3.3-5.1); Sodium 143 mmol/L (135-145); Total Protein 7.1 g/dL (6.5-8.0); Triglycerides 88 mg/dL (<150)
[2024-04-29 11:30] LABS: Creatinine Urine 46.56 mg/dL; Microalbumin Urine < 5.0 mg/L
== END 2024-04-29 06:07 | disposition home or self-care (01) ==
LOC: HO.HMGCLDS 06:06
PROVIDERS: PCP Internal Medicine; Visit Provider Internal Medicine
DX: R80.9 Proteinuria, unspecified (principal); E78.5 Hyperlipidemia, unspecified; E55.9 Vitamin D deficiency, unspecified; E11.9 Type 2 diabetes mellitus without complications
CPT/HCPCS: 36415; 80053; 80061; 82043; 82306; 82570

== ENCOUNTER 2024-05-02 07:34 | Outpatient (AMB) | payer OTHER, SELFPAY ==
--- NOTE | 2024-05-02 07:37 | A.OFFPC_ITS ---
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 Required: No Accompanied by: Self / Same As Patient Allergies acetaminophen [From PERCOCET] Allergy (Intermediate, Verified 05/02/24 07:55) HIVES oxycodone [From PERCOCET] Allergy (Intermediate, Verified 05/02/24 07:55) HIVES Medication List - Last Reconciled 05/02/24 by Kalyani Mujica MD blood sugar diagnostic (FreeStyle Lite Strips) Use 1 strip once a day blood-glucose meter (FreeStyle Lite Meter kit) As directed bupropion HCl XL 150 mg PO QAM 90 days buspirone 10 mg PO TID 90 days calcium carbonate 500 mg PO BID 90 days cholecalciferol (vitamin D3) 25 mcg PO DAILY 90 days lancets (FreeStyle Lancets) Use 1 lancet once a day metformin 500 mg PO DAILY 90 days oxybutynin chloride 5 mg PO BID 90 days rosuvastatin 20 mg PO DAILY 90 days Tobacco use date assessed: 05/02/24 Dental Screening Dental Screen Date: 05/02/24 Did you have a dental visit in the last 12 months?: Yes Was dental information given to patient?: Patient has dentist HPI HPI Comments History of Present Illness Details The patient is a 63-year-old female presenting for her physical exam. She has chronic issues of headaches and constipation. Headaches have been persistent and almost daily with characteristics of tension-type pain without ph otophobia, except during migraines. Constipation has been a problem for several months, somewhat alleviated by OTC stool softeners. She manages her mental health conditions, depression, and anxiety, using Bupropion and Buspirone. Her diabetes is controlled with Metformin, as evidenced by an A1c of 6.4%. Rosuvastatin effectively manages her hyperlipidemia, maintaining her LDL levels below 70 mg/dL. Osteopenia was diagnosed through a bone density test, and she supplements with calcium and vitamin D. Oxybutynin is taken as necessary for urinary incontinence. Medical history includes gallbladder removal and right knee arthroscopy. She is allergic to Percocet, which causes hives. Regarding family history, her father had hypertension and succumbed to COVID-19, while her mother of heart disease at the age of 59. On the preventive side, she maintains regular health screenings and recently received a flu vaccination. - Tdap vaccine last received in 2015; ne xt due in 2025. - Colonoscopy conducted in 2015; next du e in 2035. - Mammogram was performed last year; nex t scheduled for June. - Bone density test previously performed 2023 indicating osteopenia; next due in 2025. - Pap smear with HPV negative in 2021; n ext due in 2026. - Recent flu shot administered. - Lung cancer screening completed last y ear; referral for annual screening discussed. [facility] Medical History (Updated 05/02/24 @ 10:47 by Kalyani Mujica MD) Dyslipidemia Mild recurrent major depression PROSPER (generalized anxiety disorder) History of alcohol abuse Osteopenia Personal history of nicotine dependence Personal history of COVID-19 Urinary incontinence Hearing loss Surgical History History of colonoscopy History of surgery History of section History of arthroscopy of right knee History of laparoscopic cholecystectomy Family History Father Hypertension Mother CVD (cardiovascular disease) Paternal Grandmother Diabetes Social History Housing: Apartment Alcohol intake: former Patient Tobacco Use Status: Former Tobacco user Tobacco use type: Cigarette Years Smoked: (former smoker - onset 14yo, 1ppd x 43yrs, 40pyh - quit 2017) e-Cigarette/Vaping Use: Never Used Second Hand Smoke Exposure: No service: No Current occupational status: employed Current occupational exposures/hazards: No Cognitive needs: No Hearing needs: No Vision needs: Yes Questionnaire PHQ-9 Over the last 2 weeks, how often have you been bothered by any of the following problems? 1. Little interest or pleasure in doing things: not at all 2. Feeling down, depressed, or hopeless: not at all 3. Trouble falling or staying asleep, or sleeping too much: not at all 4. Feeling tired or having little energy: not at all 5. Poor appetite or overeating: not at all 6. Feeling bad about yourself - or that you are a failure or have let yourself or your family down: not at all 7. Trouble concentrating on things, such as reading the newspaper or watching television: not at all 8. Moving or speaking so slowly that other people could have noticed. Or the opposite - being so fidgety or restless that you have been moving around a lot more than usual: not at all 9. Thoughts that you would be better off or of hurting yourself in some way: not at all Total score: 0 Depression Screening Interpretation: Negative Depression Screening Done: Yes 73518 - PHQ-9 Billing: Yes Source: Developed by Drs. Jan Solano, Maria C Munguia, Wilmar Suero and colleagues, with an educational dwaine from [employer]. Thrive Questionnaire Date Thrive assessed: 05/02/24 I am a: Patient What is your living situation today?: I have a steady place to live Within the past 12 months, did the food you bought not last and you didn't have the money to get more?: Never true Within the past 12 months, did you worry whether your food would run out before you got money to buy more?: Never true Do you have trouble paying for medicines?: No Do you have trouble getting transportation to medical appointments?: No Do you have trouble paying your heating and electricity bill?: No Do you have trouble taking care of your child, family member or friend?: No Do you have trouble with day-to-day activities such as bathing, preparing meals, shopping, managing finances, etc.?: No Are you currently unemployed and looking for a job?: No Are you interested in more education?: No Please select the resources that you would like help with: None Currently or been in a relationship where the following occur: No concerns reported THRIVE Score: 0 AUDIT C Alcohol Use Questionnaire (AUDIT-C) 1. How often do you have a drink containing alcohol?: Never Total Score: 0 Score Reviewed/Action Taken: No PROSPER-7 AMB Questionnaire PROSPER-7 Date PROSPER - 7 assessed: 05/02/24 Feeling nervous, anxious, or on edge: 1 = Several days Not being able to stop or control worryin = Not at all Worrying too much about different things: 0 = Not at all Trouble relaxin = Not at all Being so restless that it is hard to sit still: 0 = Not at all Becoming easily annoyed or irritable: 1 = Several days Feeling afraid as if something awful might happen: 0 = Not at all Total PROSPER-7 score (0-4 normal; 5-9 mild; 10-14 moderate; 15-21 severe): 2 Source: Developed by Drs. Jan Solano, Maria C Munguia, Wilmar Suero and colleagues, with an educational dwaine from [employer]. PROSPER-7 Assessment Billing PROSPER-7 Assessment Tool: PROSPER-7 Assessment 20962 Review of Systems Const All systems reviewed & are unremarkable except as noted in HPI and below Card Denies chest pain at rest, Denies chest pain with activity, Denies edema, Denies irregular heart rhythm, Denies claudication, Denies dyspnea, Denies dyspnea on exertion, Denies orthopnea, Denies paroxysmal nocturnal dyspnea and Denies slow heart rate Resp Denies cough, Denies dyspnea and Denies dyspnea on exertion GI Denies abdominal pain, Denies change in bowel habits, Denies excessive flatus, Denies nausea and Denies vomiting Denies urinary incontinence, Denies urinary hesitancy and Denies urinary urgency Musc Denies abnormal gait, Denies atrophy, Denies deformity and Denies limited range of motion Skin/Breast Denies bleeding lesions, Denies changing lesions and Denies rash Neuro Denies abnormal gait and Denies lack of coordination Physical exam (Primary Care) Vital Signs: Last Vital Signs BP 122/80 05/02/24 07:38 BMI result Body Mass Index 34.7 BMI Assessment/Plan discussion: High BMI High, discussed plan: lifestyle, weight reduction, dietary and physical activity Tobacco/Smoking Status: Tobacco use Status Tobacco use date assessed 05/02/24 05/02/24 07:47 Patient Tobacco Use Status Former Tobacco user 05/02/24 07:39 Tobacco use type Cigarette 05/02/24 07:39 e-Cigarette/Vaping Use Never Used 05/02/24 07:39 PHQ-9: PHQ-9 Score PHQ-9: Total score 0 05/02/24 08:02 Depression Screening Interpretation: Negative Thrive Assessment: Date of Thrive Assessment Date Thrive assessed 05/02/24 05/02/24 07:47 Currently or been in a relationship where the following occur: No concerns reported HENMT Head: Yes normal to inspection, Yes normocephalic and Yes atraumatic Ears: external ears normal Eyes General: appearance normal, both eyes and all related structures Eyelids: Yes eyelids normal Conjunctivae: conjunctivae normal Neck Neck: Yes normal visual inspection and Yes supple Resp Effort & Inspection: normal respiratory effort Auscultation: clear to auscultation bilaterally Cardio Jugular venous distension: no JVD Rate: regular rate Rhythm: regular rhythm Heart sounds: S1 normal heart sound present and S2 normal heart sound present GI Inspection: Yes normal to inspection Palpation (GI): Soft to palpation and nontender Auscultation: normal bowel sounds Skin General skin exam: no rashes or lesions noted Neuro General: no focal motor deficits Extrem General: Yes full ROM Psych Appearance: grossly normal Results AMB Hemoglobin A1c AMB Hemoglobin A1c 6.4 % Last Edit by ABEL Gill on 05/02/24 07:4 9 Results Reviewed Results Reviewed: Laboratory Last Values Hgb A1c (Clinic) 6.4 % (4.0-6.0) H 05/02/24 07:48 Coding Level of Care Code Est Pt Level 4 (49264) Est Pt Prev Care 40-64y(34611) Diagnoses Physical exam Z00.00 Mild recurrent major depression F33.0 Type 2 diabetes mellitus without complication, without long-term current use of insulin E11.9 Diabetes mellitus type: type 2 Diabetes mellitus long-term insulin use: without terminal gauger supervisor use Diabetes mellitus complication status: without complication Personal history of nicotine dependence Z87.891 Chronic idiopathic constipation K59.04 Migraines G43.909 Additional Codes PROSPER-7 Assessment Billing - PROSPER-7 Assessment Tool: PROSPER-7 Assessment 38193 ([id number]) PHQ-9 - 41337 - PHQ-9 Billing: Yes ([id number]) Time Spent (min) 40 Assessment & Plan Assessment & Plan (1) Physical exam: Code(s): Z00.00 - Encounter for general adult medical examination without abnormal findings Category: Medical (2) Mild recurrent major depression: Code(s): F33.0 - Major depressive disorder, recurrent, mild Category: Medical (3) Diabetes mellitus: Code(s): E11.9 - Type 2 diabetes mellitus without complications Category: Medical Qualifiers: Diabetes mellitus type: type 2 Diabetes mellitus terminal gauger supervisor insulin use: without long-term use Diabetes mellitus complication status: without complication Qualified Code(s): E11.9 - Type 2 diabetes mellitus without complications (4) Personal history of nicotine dependence: Comment: (former smoker - onset 14yo, 1ppd x 43yrs, 40pyh - quit 2018) Code(s): Z87.891 - Personal history of nicotine dependence Category: Medical (5) Chronic idiopathic constipation: Code(s): K59.04 - Chronic idiopathic constipation Category: Medical (6) Migraines: Code(s): G43.909 - Migraine, unspecified, not intractable, without status migrainosus Category: Medical Plan Rosuvastatin will be continued for hyperlipidemia management due to successfully maintaining her LDL levels below 70 mg/dL. Follow-up lab work is scheduled, and preparations for upcoming screenings are confirmed, including a pending mammogram in June. Finally, a referral for annual lung cancer screening has been initiated. This comprehensive approach takes into account her past m edical history, surgical interventions, and family predispositions. Lifestyle enhancements and adherence to preventive care remain focal points of discussion. Start Topamax for migraine prophylaxis. Referred to neurology for migraines. Use sumatriptan as needed for migraine. Start senna as needed for constipation. Follow a high-fiber diet. Patient was informed and verbally consented to the use of an ambient scribe for clinic note documentation during this visit. During our discussion, we elaborated on managing headaches with preventative medications, notably Topiramate, while exploring the benefits and potential side effects, like weight loss. The approach includes a careful consideration of her insurance limitations on acute medications, and she was agreeable to a neurology referral. We examined the plan for addressing constipation and reinforcing her diabetic management with Metformin, highlighting the importance of the current A1c measure. Continuing Rosuvastatin therapy for LDL management was reinforced. I highlighted preventive care, including the necessity of screenings?a lung cancer screening was scheduled ahead. Finally, I provided instructions and follow-up plans with expectations for effective symptom management. The patient was encouraged to reach out if symptoms escalate or new concerns arise. Orders: Orders AMB Hemoglobin A1c Today E11.9 - Type 2 diabetes mellitus without complications Comprehensive [place]. Panel Fast 4 Months E11.9 - Type 2 diabetes mellitus without complications Lipid Panel 4 Months E11.9 - Type 2 diabetes mellitus without complications, E78.5 - Hyperlipidemia, unspecified Microalbumin, Random (w Creat) 4 Months E11.9 - Type 2 diabetes mellitus without complications, R80.9 - Proteinuria, unspecified Vitamin D 25-OH Total 4 Months E55.9 - Vitamin D deficiency, unspecified Referrals Lung Cancer Screening Referral Z87.891 - Personal history of nicotine grantpatty mirella Neurology Referral G43.909 - Migraine, unspecified, not intractable, without status migrainosus Medications: New magnesium oxide 400 mg PO BEDTIME 90 tabs 1RF 90 days G43.909 - Migraine, unspecified, not intractable, without status migrainosus sennosides (senna) 8.6 mg PO BEDTIME PRN 30 caps 0RF constipation 30 days K59.04 - Chronic idiopathic constipation sumatriptan succinate do not exceed 8 doses per 24 hrs 25 mg PO Q2-4H PRN 9 tabs 2RF migraine headache 30 days G43.909 - Migraine, unspecified, not intractable, without status migrainosus topiramate 25 mg PO BEDTIME 90 tabs 1RF 90 days G43.909 - Migraine, unspecified, not intractable, without status migrainosus Patient Instructions: - Start prescribed Topamax and take magnesium at bedtime. - Use headache medication as directed, but limit to prescribed doses. - Follow up with neurology as scheduled for headache management. - Take constipation medication as prescribed and monitor relief. - Continue taking Metformin and Rosuvastatin as directed. - Schedule and attend lung cancer screening. - Keep the mammogram appointment in June. - Maintain a balanced diet with adequate calcium and vitamin D. - Plan for follow-up lab work in four months. - Contact the office with any increases in symptoms or new health concerns.
[2024-05-02 07:38] VITALS: BP 122/80; BMI 34.7
== END 2024-05-02 08:07 | disposition home or self-care (01) ==
LOC: HO.HMCH 07:35
PROVIDERS: PCP Internal Medicine; Visit Provider Internal Medicine
DX: Z00.00 Encounter for general adult medical examination without abnormal findings (principal); E11.9 Type 2 diabetes mellitus without complications; F33.0 Major depressive disorder, recurrent, mild; Z87.891 Personal history of nicotine dependence; K59.04 Chronic idiopathic constipation; G43.909 Migraine, unspecified, not intractable, without status migrainosus

== ENCOUNTER → 2024-05-02 07:34 | Outpatient (BNVA) | payer OTHER, SELFPAY | PROVIDERS: PCP Internal Medicine; Visit Provider Internal Medicine | DX: Z00.00 Encounter for general adult medical examination without abnormal findings (principal); F33.0 Major depressive disorder, recurrent, mild; E11.9 Type 2 diabetes mellitus without complications; K59.04 Chronic idiopathic constipation; G43.909 Migraine, unspecified, not intractable, without status migrainosus; Z87.891 Personal history of nicotine dependence | CPT/HCPCS: 83036; 96127; 99212; 99396 ==

== ENCOUNTER 2024-05-10 09:44 | Outpatient (REF) | payer OTHER, SELFPAY ==
--- OUTSIDE RECORDS SUMMARY | 2024-05-10 10:50 | XMS_ITS | Patient Health Record ---
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 Name Role Phone Kalyani Carr Primary Care Provider Johnny Buckner Jr Unavailable Allergies Allergen (clinical drug ingredient) Drug/Non Drug Allergy documented on EMR Reaction Allergy Type Onset Date Status acetaminophen / oxycodone Percocet hives Drug Allergy Active Reason For Referral No Information Medications Medication SIG (Take, Route, Fr equency, Duration) Notes Start Date End Date Status Tolterodine Tartrate ER Active Vitamin D Active Calcium Active Vitamin B 12 Active Ibuprofen 600 MG Orally PRN Ac tive buPROPion HCl ER (XL) Active busPIRone HCl Active Immunizations Vaccine Route Administration Date Status Comme nts Influenza Unknown 11/07/2018 Administered Social History Tobacco Use: Social History Observation Description Date Details (start date - stop date) Former Smoker NA - 02/05/2018 Tobacco Use/Smoking Question Answer Notes Patient is [...] ast year? No Points 0 Interpretation Negative Problems Problem Type SNOMED Code ICD Code Onset Dates Problem Status W/U Status Risk Notes Problem [id number] Elevated liver enzymes (R74.8) Active confirmed Problem 62886116 Liver cyst (K76.89) Active confirmed Plan Of Treatment Pending Test Test Name Order Date LIVER PROFILE 10/16/2019 Insurance Providers Payer Name Payer Address Payer Phone Subscriber Number Group Number Insured Name Patient Relationship to Insured Coverage Start Date Coverage End Date [employer] PPO [address] [place] [phone] [id number] DAO GHOSH Self - patient is the insured Medical (General) History Medical History History ICD Code depression overactive bladder (OAB) anxiety Surgical History Surgery Date(Month/Year) arthroscopic knee surgery 2008 section 1983 cholecystectomy 2010
--- OUTSIDE RECORDS SUMMARY | 2024-05-10 10:50 | XMS_ITS | Clinical Summary ---
Author Organization [facility] Address [address] [facility] 7t [place] [address] Care Team Providers Care Pediatric Speech Therapist Name Role Phone Unavailable Primary Care Provider Unavailabl e Encounters Date Type Department Care Team Description 05/08/2024 Population Health Risk Score [facility] (C3) Department [address] [facility] [place] [place] [address] [place] [address] Provider, Population Health Generic from Last 3 Months Social History Tobacco Use Types Packs/Day Years Used Date Smoking Tobacco: Never Assessed Comments Unknown Sex and Gender Information Value Date Recorded Sex Assigned at Not on file Legal Sex Female 11:40 AM EDT Gender Identity Not on file Sexual Orientation Not on file Plan of Treatment Health Maintenance Due Date Last Done Comments CT Colonography 1962 Colonoscopy 1962 Colorectal Cancer Screening 1962 Depression Screening 1962 FIT DNA/Cologuard 1962 FIT 1962 FOBT 1962 HIV Screening 1962 SDOH Screening 1962 Sigmoidoscopy 1962 Alcohol/Substance Use Screening 1974 Tobacco Screening 1974 Hepatitis C Screening 1980 DTaP/Tdap/Td Vaccines (1 - Tdap) 1981 Pap Smear 10/13/1983 Cervical Cancer Screening 1992 HPV/Cotest 1992 Mammogram 2002 Pneumococcal Vaccine: 50+ Ye ars (1 of 1 - PCV) 2012 Zoster Vaccines (1 of 2) 2012 COVID-19 Vaccine ( - 2023-2 5 season) 2023 Influenza Vaccine (#1) 2023 RSV Patients and Pa tients Aged 60 years or older (1 - 1-dose 75+ series) 2037 HIB Vaccines Aged Out No longer eligi ble based on patient's age to complete this topic HPV Vaccines Aged Out No longer eligi ble based on patient's age to complete this topic Hepatitis A Vaccines Aged Out No long er eligible based on patient's age to complete this topic Hepatitis B Vaccines Aged Out No long er eligible based on patient's age to complete this topic IPV Vaccines Aged Out No longer eligi ble based on patient's age to complete this topic Meningococcal Vaccine Aged Out No kenia williams eligible based on patient's age to complete this topic RSV under 20 months Aged Out No longe r eligible based on patient's age to complete this topic Rotavirus Vaccines Aged Out No longer eligible based on patient's age to complete this topic
--- OUTSIDE RECORDS SUMMARY | 2024-05-10 10:50 | XMS_ITS | Encounter Summary ---
Author Organization [employer] [facility] Address [address] [facility] 7[address] [place] [address] Care Team Providers Care Advertising Manager Name Role Phone Unavailable Primary Care Provider Unavailabl e Encounter Details Date Type Department Care Team (Late st Contact Info) Description 05/08/2024 Population Health Risk Score [facility] (C3) Department [address] [facility] [address] [place] [address] Provider, Population Health Generic Social History Tobacco Use Types Packs/Day Years Used Date Smoking Tobacco: Never Assessed Comments Unknown Sex and Gender Information Value Date Recorded Sex Assigned at Not on file Legal Sex Female 11:40 AM EDT Gender Identity Not on file Sexual Orientation Not on file documented as of this encounter Plan of Treatment Not on file documented as of this encounter Visit Diagnoses Not on filedocumented in this encounter
== END 2024-05-10 09:45 | disposition home or self-care (01) ==
LOC: HO.HAP 09:44
PROVIDERS: Visit Provider Internal Medicine
DX: Z13.89 Encounter for screening for other disorder (principal)

== ENCOUNTER 2024-05-22 15:49 | Outpatient (REF) | payer OTHER, SELFPAY ==
--- NOTE | 2024-05-22 16:38 | MHC.AU.HA3 ---
Hearing Instrument Follow-Up- Binaural Date of Visit: 05/22/24 Right Ear: Dominic, Model, Color, Serial Number: Tracey Schwartzo P 70-R Ashleigh Ramirez #[id number] Hospital Education Coordinator Repair Warranty: 06/28/2023 Hospital Education Coordinator Loss and Damage Warranty: 06/28/2023 [facility] Service Plan: 06/28/2023 Battery Size: 13 Assembler Steam And Gas Turbine/Slim Tube: Size 1 Power Earmold/Dome/CShell/SlimTip:Phonak Canal Lock C-Shell #[id number] remake warranty 09/13/2024 Type of Wax Guard: CeruStop Dispensed By: [facility] Date of Fittin04/10/2020 Left Ear: Dominic, Model, Color, Serial Number: Trcaey Minayaeo P 70-R Ashleigh Ramirez #[id number] Hospital Education Coordinator Repair Warranty: 06/28/2023 Hospital Education Coordinator Loss and Damage Warranty: 06/28/2023 [facility] Service Plan: 06/30/2023 Battery Size: 13 Assembler Steam And Gas Turbine/Slim Tube: Size 1 P Earmold/Dome/CShell/SlimTip: Phonak Canal Lock C-Shell #[id number] remake warranty 09/13/2024 Type of Wax Guard: CeruStop Dispensed By: [facility] Date of Fittin04/10/2020 Follow-Up Summary: Namrata arrived with her left hearing aid, her right hearing aid was stored here. Placed new c-shells on hearing aids. Ran feedback customer advocacy manager. Good subjective comfort and benefit reported. Advised of remake period, return if any issues with the fit of these c-shells arises. Namrata inquired about switching from these hearing aids to rechargeable hearing aids. New amplification not recommended at this time as these are just 4 years old and in good working order. Recommendations: Recommendations: Hearing instrument follow-up or maintenance as needed. Diagnosis Code(s): Primary Diagnosis: H90.3 Bilateral Sensorineural Hearing Loss Signature: Provider: Bhupendra Anthony, [facility]
--- OUTSIDE RECORDS SUMMARY | 2024-05-22 18:10 | XMS_ITS | Patient Health Record ---
Author Organization [facility] Address [address] [place] [address] Care Team Providers Care Decorating Machine Operator Name Role Phone Kalyani Carr Primary Care Provider Johnny Buckner Jr Unavailable [phone] Allergies Allergen (clinical drug ingredient) Drug/Non Drug [...] Problem Status W/U Status Risk Notes Problem [id number] Elevated liver enzymes (R74.8) Active confirmed Problem [id number] Liver cyst (K76.89) Active confirmed Plan Of Treatment Pending Test Test Name Order Date LIVER PROFILE 10/16/2019 Insurance Providers Payer Name Payer Address Payer Phone Subscriber Number Group Number Insured Name Patient Relationship to Insured Coverage Start Date Coverage End Date [employer] PPO [address] [place] [phone] [id number] DAO GHOSH Self - patient is the insured Medical (General) History Medical History History ICD Code depression overactive bladder (OAB) anxiety Surgical History Surgery Date(Month/Year) arthroscopic knee surgery 2008 section 1983 cholecystectomy 2010
--- OUTSIDE RECORDS SUMMARY | 2024-05-22 18:10 | XMS_ITS | Clinical Summary ---
Author Organization [employer] [facility] Address [address] [facility] 7[address] [place] [address] Care Team Providers Care Home Manager Name Role Phone Unavailable Primary Care Provider Unavailabl e Encounters Date Type Department Care Team Description 05/08/2024 Population Health Risk Score [facility] Care [facility] (C3) Department [address] [facility] [address] [place] [address] Provider, Population Health Generic from [...]
== END 2024-05-22 15:50 | disposition home or self-care (01) ==
LOC: HO.HAP 15:49
PROVIDERS: Visit Provider Internal Medicine
DX: Z46.1 Encounter for fitting and adjustment of hearing aid (principal); H90.3 Sensorineural hearing loss, bilateral
CPT/HCPCS: V5264

== ENCOUNTER 2024-07-02 15:10 | Outpatient (REF) | payer OTHER, SELFPAY ==
--- OUTSIDE RECORDS SUMMARY | 2024-07-02 15:13 | XMS_ITS | Clinical Summary ---
Author Organization [employer] [facility] Address [address] [facility] 7t [place] [address] Care Team Providers Care Circuit Manager Name Role Phone Unavailable Primary Care Provider Unavailabl e Encounters Date Type Department Care Team Description 05/08/[address] [facility] Care [facility] (C3) Department [address] [facility] [address] [place] [address] Provider, Population Health Generic from [...] Screening 1962 SDOH Screening 1962 Sigmoidoscopy 1962 Disability Screening 1962 Alcohol/Substance Use Screening 1974 Tobacco Screening [...] patient's age to complete this topic Meningococcal B Vaccine Aged Out No l onger eligible based on patient's age to complete [...]
== END 2024-07-02 15:11 | disposition home or self-care (01) ==
LOC: HO.MAMMO 15:10
PROVIDERS: PCP Internal Medicine; Visit Provider Internal Medicine
DX: Z12.31 Encounter for screening mammogram for malignant neoplasm of breast (principal)
CPT/HCPCS: 77063; 77067

== ENCOUNTER → 2024-07-02 15:30 | Outpatient (BNV) | payer OTHER, SELFPAY | PROVIDERS: PCP Internal Medicine; Visit Provider Internal Medicine | DX: Z12.31 Encounter for screening mammogram for malignant neoplasm of breast (principal) | CPT/HCPCS: 77063; 77067 ==

== ENCOUNTER 2024-07-23 12:42 | Outpatient (REF) | payer OTHER, SELFPAY ==
--- NOTE | ~2024-07-23 | XR_ITS ---
EXAMINATION: XR CLAVICLE, RIGHT CLINICAL INFORMATION: M95.8 - Other specified acquired deformities of musculoskeletal system COMPARISON: Chest x-ray April 22, 2022 TECHNIQUE: AP and axial views of the right clavicle. FINDINGS: AC joint is intact. There are mild degenerative changes with osteophytes. XR/XR clavicle RT IMPRESSION: Mild AC joint arthropathy. Electronically signed by: Jeffrey Wooten MD 07/23/2024 01:37 PM EDT
--- OUTSIDE RECORDS SUMMARY | 2024-07-23 14:22 | XMS_ITS | Clinical Summary ---
Author Organization [employer] [facility] Address [address] [facility] 7[address] [place] [address] Care Team Providers Care Manager Ccu Name Role Phone Unavailable Primary Care Provider Unavailabl e Encounters Date Type Department Care Team Description 05/08/2024 Population Health Risk Score [facility] (C3) Department [address] [facility] [place] [place] [address] Provider, Population Health Generic from [...] - 2023-2 5 season) 2023 Influenza Vaccine (Season Ended) 2024 RSV Patients and Pa tients Aged 60 [...]
== END 2024-07-23 12:43 | disposition home or self-care (01) ==
LOC: HO.XRAY 12:42
PROVIDERS: PCP Internal Medicine; Visit Provider Internal Medicine
DX: M95.8 Other specified acquired deformities of musculoskeletal system (principal)
CPT/HCPCS: 73000

== ENCOUNTER → 2024-07-23 12:46 | Outpatient (BNV) | payer OTHER, SELFPAY | PROVIDERS: PCP Internal Medicine; Visit Provider Radiology Diagnostic Radiology | DX: M95.8 Other specified acquired deformities of musculoskeletal system (principal) | CPT/HCPCS: 73000 ==

== ENCOUNTER 2024-08-30 06:18 | Outpatient (REF) | payer OTHER, SELFPAY ==
[2024-08-30 07:42] LABS: Alanine Aminotransferase 32 U/L (0-31); Albumin Level 4.2 g/dL (3.5-5.0); Alkaline Phosphatase 76 U/L (39-117); Anion Gap 12 (12-20); Aspartate Amino Transferase 25 U/L (5-31); Blood Urea Nitrogen 14 mg/dL (9-16); Calcium 9.0 mg/dL (8.4-10.2); Carbon Dioxide 23 mmol/L (22-29); Chloride 113 mmol/L (96-108); Cholesterol 129 mg/dL (<200); Estimated Glomerular Filt Rate > 60; HDL Cholesterol 47 mg/dL (>40); Potassium 4.4 mmol/L (3.3-5.1); Sodium 144 mmol/L (135-145); Total Protein 7.1 g/dL (6.5-8.0); Triglycerides 110 mg/dL (<150)
[2024-08-30 08:22] LABS: Microalbum/Creatinine Ratio Ur 8.3 ug/mg cr (<30)
== END 2024-08-30 06:19 | disposition home or self-care (01) ==
LOC: HO.LAB 06:18
PROVIDERS: PCP Internal Medicine; Visit Provider Internal Medicine
DX: E55.9 Vitamin D deficiency, unspecified (principal); E11.9 Type 2 diabetes mellitus without complications; E78.5 Hyperlipidemia, unspecified; R80.9 Proteinuria, unspecified
CPT/HCPCS: 36415; 80053; 80061; 82043; 82306; 82570

== ENCOUNTER 2024-09-02 16:52 | Outpatient (AMB) | payer OTHER, SELFPAY ==
--- NOTE | 2024-09-02 16:54 | MHC.PC.OV ---
Vital Signs 09/02/24 16:57 Height 4 ft 10 in Weight 163 lb BMI 34.1 BP 112/78 Blood Pressure Location Lt brachial Position Sitting Intake Visit Reasons: DM Intake Note: Patient here for a follow up DM Rosin Barrel Filler Required: No Accompanied by: Self / Same As Patient Allergies acetaminophen (From PERCOCET) Allergy (Intermediate, Verified 09/02/24 17:12) HIVES oxycodone (From PERCOCET) Allergy (Intermediate, Verified 09/02/24 17:12) HIVES Medication List - Last Reconciled 09/02/24 by Kalyani Mujica MD blood sugar diagnostic (FreeStyle Lite Strips) Use 1 strip once a day blood-glucose meter (FreeStyle Lite Meter kit) As directed bupropion HCl XL 150 mg PO QAM 90 days buspirone 10 mg PO TID 90 days calcium carbonate 500 mg PO BID 90 days cholecalciferol (vitamin D3) 25 mcg PO DAILY 90 days lancets (FreeStyle Lancets) Use 1 lancet once a day magnesium oxide 400 mg PO BEDTIME 90 days metformin 500 mg PO DAILY 90 days oxybutynin chloride 5 mg PO BID 90 days rosuvastatin 20 mg PO DAILY 90 days sennosides (senna) 8.6 mg PO BEDTIME PRN 30 days sumatriptan succinate 25 mg PO Q2-4H PRN 30 days topiramate 25 mg PO BEDTIME 90 days Tobacco use date assessed: 05/02/24 Dental Screening Dental Screen Date: 05/02/24 HPI HPI Comments History of Present Illness Details The patient is a 63-year-old female presenting for follow-up of her chronic conditions including diabetes, dyslipidemia, recurrent major depression, anxiety, and migraines. Her diabetes is currently managed with metformin, and her most recent hemoglobin A1c is 6.5%, indicating good control. Her dyslipidemia is managed with rosuvastatin, with her last LDL cholesterol level recorded at 60 mg/dL. She is taking bupropion for depression and buspirone for anxiety, which are part of her ongoing management for recurrent major depressive disorder and generalized anxiety disorder. She also uses sumatriptan as needed for migraines and Topamax for migraine prophylaxis, which has been effective in preventing migraines. The patient has osteopenia for which she takes calcium with vitamin D. She also takes magnesium for migraine management and oxybutynin for urge urinary incontinence. She reports no chest pain or dyspnea and undergoes annual diabetic eye exams. Her BMI is 34.1, classifying her as obese, and she has been advised to follow a diet and exercise regimen. [facility], [facility] Medical History Dyslipidemia Mild recurrent major depression PROSPER (generalized anxiety disorder) History of alcohol abuse Osteopenia Personal history of nicotine dependence Personal history of COVID-19 Urinary incontinence Hearing loss Surgical History History of colonoscopy History of surgery History of section History of arthroscopy of right knee History of laparoscopic cholecystectomy Family History Father Hypertension Mother CVD (cardiovascular disease) Paternal Grandmother Diabetes Social History Housing: Apartment Alcohol intake: former Patient Tobacco Use Status: Former Tobacco user Tobacco use type: Cigarette Years Smoked: (former smoker - onset 14yo, 1ppd x 43yrs, 40pyh - quit 2017) e-Cigarette/Vaping Use: Never Used Second Hand Smoke Exposure: No service: No Current occupational status: employed Current occupational exposures/hazards: No Cognitive needs: No Hearing needs: No Vision needs: Yes Questionnaire Thrive Questionnaire Date Thrive assessed: 09/02/24 I am a: Patient What is your living situation today?: I have a steady place to live Within the past 12 months, did the food you bought not last and you didn't have the money to get more?: Never true Within the past 12 months, did you worry whether your food would run out before you got money to buy more?: Never true Do you have trouble paying for medicines?: No Do you have trouble getting transportation to medical appointments?: No Do you have trouble paying your heating and electricity bill?: No Do you have trouble taking care of your child, family member or friend?: No Do you have trouble with day-to-day activities such as bathing, preparing meals, shopping, managing finances, etc.?: No Are you currently unemployed and looking for a job?: No Are you interested in more education?: No Please select the resources that you would like help with: None Currently or been in a relationship where the following occur: No concerns reported THRIVE Score: 0 PROSPER-7 AMB Questionnaire PROSPER-7 Date PROSPER - 7 assessed: 09/02/24 Source: Developed by Drs. Jan Solano, Maria C Munguia, Wilmar Suero and colleagues, with an educational dwaine from [employer]. Review of Systems Const All systems reviewed & are unremarkable except as noted in HPI and below Card Denies chest pain at rest, Denies chest pain with activity, Denies edema, Denies irregular heart rhythm, Denies claudication, Denies dyspnea, Denies dyspnea on exertion, Denies orthopnea, Denies paroxysmal nocturnal dyspnea and Denies slow heart rate Resp Denies cough, Denies dyspnea and Denies dyspnea on exertion GI Denies abdominal pain, Denies change in bowel habits, Denies excessive flatus, Denies nausea and Denies vomiting Denies urinary incontinence, Denies urinary hesitancy and Denies urinary urgency Musc Denies abnormal gait, Denies atrophy, Denies deformity and Denies limited range of motion Skin/Breast Denies bleeding lesions, Denies changing lesions and Denies rash Neuro Denies abnormal gait and Denies lack of coordination Physical exam (Primary Care) Vital Signs: Last Vital Signs BP 112/78 09/02/24 16:57 BMI result Body Mass Index 34.1 BMI Assessment/Plan discussion: High BMI High, discussed plan: lifestyle, weight reduction, dietary and physical activity Tobacco/Smoking Status: Tobacco use Status Tobacco use date assessed 05/02/24 09/02/24 16:56 Patient Tobacco Use Status Former Tobacco user 09/02/24 16:56 Tobacco use type Cigarette 09/02/24 16:56 e-Cigarette/Vaping Use Never Used 09/02/24 16:56 Thrive Assessment: Date of Thrive Assessment Date Thrive assessed 09/02/24 09/02/24 16:56 Currently or been in a relationship where the following occur: No concerns reported Resp Effort & Inspection: normal respiratory effort Auscultation: clear to auscultation bilaterally Cardio Jugular venous distension: no JVD Rate: regular rate Rhythm: regular rhythm Heart sounds: S1 normal heart sound present and S2 normal heart sound present Extrem General: Yes full ROM Results AMB Hemoglobin A1c AMB Hemoglobin A1c 6.5 % Last Edit by ABEL Gill on 09/02/24 17:05 Results Reviewed Results Reviewed: Laboratory Last Values Hgb A1c (Clinic) 6.5 % (4.0-6.0) H 09/02/24 16:54 Coding Level of Care Code Est Pt Level 4 (05885) Complex EM visit Add On G2211 Diagnoses Type 2 diabetes mellitus without complication, without long-term current use of insulin E11.9 Diabetes mellitus type: type 2 Diabetes mellitus supervisor long goods insulin use: without supervisor long goods use Diabetes mellitus complication status: without complication Mild recurrent major depression F33.0 Dyslipidemia E78.5 PROSPER (generalized anxiety disorder) F41.1 Migraines G43.909 Time Spent (min) 23 Assessment & Plan Assessment & Plan (1) Diabetes mellitus: Code(s): E11.9 - Type 2 diabetes mellitus without complications Category: Medical Qualifiers: Diabetes mellitus type: type 2 Diabetes mellitus supervisor long goods insulin use: without prison use Diabetes mellitus complication status: without complication Qualified Code(s): E11.9 - Type 2 diabetes mellitus without complications (2) Mild recurrent major depression: Code(s): F33.0 - Major depressive disorder, recurrent, mild Category: Medical (3) Dyslipidemia: Code(s): E78.5 - Hyperlipidemia, unspecified Category: Medical (4) PROSPER (generalized anxiety disorder): Code(s): F41.1 - Generalized anxiety disorder Category: Medical (5) Migraines: Code(s): G43.909 - Migraine, unspecified, not intractable, without status migrainosus Category: Medical Plan The patient will continue her current medication regimen, including metformin for diabetes, rosuvastatin for dyslipidemia, bupropion for depression, buspirone for anxiety, and Topamax for migraine prophylaxis. She is advised to maintain her diet and exercise regimen to address obesity and improve overall health. Annual diabetic eye exams will continue as part of her diabetes management. Laboratory tests will be conducted at her next office visit to monitor her chronic conditions. Patient was informed and verbally consented to the use of an ambient scribe for clinic note documentation during this visit. Orders: Orders AMB Hemoglobin A1c Today E11.9 - Type 2 diabetes mellitus without complications Lipid Panel 4 Months E78.5 - Hyperlipidemia, unspecified Microalbumin, Random (w Creat) 4 Months R80.9 - Proteinuria, unspecified Vitamin D 25-OH Total 4 Months E55.9 - Vitamin D deficiency, unspecified Comprehensive Challenge. Panel Fast 4 Months E11.9 - Type 2 diabetes mellitus without complications
[2024-09-02 16:57] VITALS: BP 112/78; BMI 34.1
== END 2024-09-02 17:25 | disposition home or self-care (01) ==
LOC: HO.HMCH 16:53
PROVIDERS: PCP Internal Medicine; Visit Provider Internal Medicine
DX: E11.9 Type 2 diabetes mellitus without complications (principal); F33.0 Major depressive disorder, recurrent, mild; E78.5 Hyperlipidemia, unspecified; F41.1 Generalized anxiety disorder; G43.909 Migraine, unspecified, not intractable, without status migrainosus

== ENCOUNTER → 2024-09-02 16:52 | Outpatient (BNVA) | payer OTHER, SELFPAY | PROVIDERS: PCP Internal Medicine; Visit Provider Internal Medicine | DX: E11.9 Type 2 diabetes mellitus without complications (principal); F33.0 Major depressive disorder, recurrent, mild; E78.5 Hyperlipidemia, unspecified; F41.9 Anxiety disorder, unspecified; G43.909 Migraine, unspecified, not intractable, without status migrainosus; F41.1 Generalized anxiety disorder; R80.9 Proteinuria, unspecified; E55.9 Vitamin D deficiency, unspecified; Z79.84 Long term (current) use of oral hypoglycemic drugs | CPT/HCPCS: 83036; 99212 ==

== ENCOUNTER 2024-09-09 07:21 | Outpatient (REF) | payer OTHER, SELFPAY ==
--- NOTE | ~2024-09-09 | CT_ITS ---
CLINICAL HISTORY: Z87.891 - Personal history of nicotine dependence CT lung cancer screening (LDCT) Comparison: 08/01/2023 Technique: Axial CT images of the chest using low-dose technique. Referring provider counseled the patient on shared decision-making for LDCT screening. Additional counseling was provided on smoking cessation. Effective radiation dose total: DLP 38.5 mGycm, CTDIvol 1.2 mGy. Findings: Lung: No new solid or semi solid lesion. Coronary artery calcifications: Mild Limited upper abdomen: Unremarkable Other: None Impression: Category 1: Normal; continue annual screening Category 1: Normal; continue annual screening Category 2: Benign appearance or behavior, continue annual screening Category 3: Probably benign, [address] recommended Category 4A: Suspicious, [address] recommended; may consider PET/CT Category 4B: Suspicious, Additional diagnostics and/or tissue sampling recommended Category 4X: Suspicious, Additional diagnostics and/or tissue sampling recommended Category 0: Recalls (incomplete screen due to Incomplete coverage, Noise, Respiratory motion, Expiration, Obscured by acute abnormality) This document has been electronically signed by: Darren Dias MD on 09/09/2024 08:47:48
--- OUTSIDE RECORDS SUMMARY | 2024-09-09 07:24 | XMS_ITS | Clinical Summary ---
Author Organization [facility] Address [address] [place] [address] Phone Care Team Providers Care Medical Physics Professor Name Role Phone Kalyani Carr MD Primary Care Provid er Allergies Active Allergy Reactions Criticality Noted Date Comments Oxycodone-Acetaminophen Hives 09/11/2023 Medications buPROPion (WELLBUTRIN XL) 150 MG ER 24 hr tablet Take 150 mg by mouth every morning. 09/02/2023 Active busPIRone (BUSPAR) 10 MG tablet Take 5 mg by mouth 3 (three) times a day. 07/05/2023 Active metFORMIN (GLUCOPHAGE) 500 MG tablet Take 1 tablet by mouth 2 (two) times a day. 07/05/2023 Active rosuvastatin (CRESTOR) 20 MG tablet Take 1 tablet by mouth every morning. 08/21/2023 Active tolterodine (DETROL LA) 2 MG 24 hr capsule Take 5 mg by mouth daily. Active ALPRAZolam (XANAX) 0.5 MG tablet Take 1 tablet (0.5 mg total) by mouth once for 1 dose. 1 tablet 10/25/2023 Active Family History Medical History Relation Comments Hypertension Father Heart block Mother Relation Status Comments Father Mother Social History Tobacco Use Types Packs/Day Years Used Date Smoking Tobacco: Never Tobacco Cessation:Counseling Given: Not Answered Alcohol Use Standard Drinks/Week Comments Not Currently 0 (1 standard drink = 0.6 oz pur e alcohol) Education Answer Date Recorded Are you interested in more education? Not on maricarmen e 09/01/2023 Are you concerned about learning? Not on file 09/01/2023 No 09/01/2023 No 09/01/2023 Digital Access Answer Date Recorded No 09/01/2023 No 09/01/2023 Reliable internet access at home? Not on file 09/01/2023 Device with a working camera? Not on file Comments Unknown Sex and Gender Information Value Date Recorded Sex Assigned at Not on file Legal Sex Female 11:09 AM EDT Gender Identity Not on file Sexual Orientation Not on file Last Filed Vital Signs Vital Sign Reading Time Taken Comments Blood Pressure 133/74 10/27/2023 11:50 AM EDT Pulse 75 10/27/2023 11:50 AM EDT Temperature - - Respiratory Rate 16 10/27/2023 11:50 AM EDT Oxygen Saturation 98% 10/27/2023 11:50 AM EDT Inhaled Oxygen Concentration - - Weight 68.8 kg (151 lb 9.6 oz) 09/11/2023 2:21 P M EDT Height 148.6 cm (4' 10.5 ) 09/11/2023 2:21 PM ED T Body Mass Index 31.15 09/11/2023 2:21 PM EDT Plan of Treatment Health Maintenance Due Date Last Done Comments CREATININE LEVEL 1962 LIPID PANEL 1962 DEPRESSION SCREENING 1974 HEPATITIS C SCREENING 1980 HIV ONE-TIME SCREENING (18-6 5 YEARS) 1980 PAP SMEAR 10/13/1983 SMOKING STATUS SCREENING (On ce After 26 Yrs) 1988 SCREENING FOR DIABETES 1997 MAMMOGRAM 2002 COLOGUARD 10/13/2007 COLONOSCOPY 10/13/2007 COLORECTAL CANCER SCREENING 10/13/2007 FIT TEST 10/13/2007 FOBT 10/13/2007 SIGMOIDOSCOPY 10/13/2007 VIRTUAL COLONOSCOPY 10/13/2007 PNEUMOCOCCAL VACCINES (50+ years) (1 of 1 - PCV) 2012 ZOSTER VACCINES (1 of 2) 2012 COVID-19 VACCINE (4 - 2023-2 5 season) 2023 12/10/2020, 05/22/2020, 04/24/2020 Adult Td,Tdap Booster 05/24/2025 05/25/2015 RSV VACCINE (1 - 1-dose 75+ series) 2037 HEPATITIS A VACCINES Aged Out No long er eligible based on patient's age to complete this topic HIB VACCINES Aged Out No longer eligi ble based on patient's age to complete this topic MENINGOCOCCAL VACCINES (ACWY) Aged Out No longer eligible based on patient's age to complete this topic MENINGOCOCCAL VACCINES (B) Aged Out N o longer eligible based on patient's age to complete this topic Medical Devices Not on file Insurance [place] Care Teams Medical Physics Professor Relationship Specialty Start Date End Date Kalyani Carr MD [address] [place] [address] PCP - General Internal Medicine 09/01/23 Additional Source Comments The information contained in this document represents components of the legal health record. It is not the complete legal health record.[facility]
--- OUTSIDE RECORDS SUMMARY | 2024-09-09 07:24 | XMS_ITS | Clinical Summary ---
Author Organization [facility] Address [address] [facility] 7t [place] [address] Care Team Providers Care Energy Advisor Name Role Phone Unavailable Primary Care Provider Unavailabl e Social History Tobacco Use Types Packs/Day Years [...] 2023-2 5 season) 2023 Influenza Vaccine (#1) 2024 RSV Patients and Pa tients Aged [...]
== END 2024-09-09 07:22 | disposition home or self-care (01) ==
LOC: HO.CT 07:21
PROVIDERS: PCP Internal Medicine; Visit Provider Physician Assistant Medical
DX: Z12.2 Encounter for screening for malignant neoplasm of respiratory organs (principal); Z87.891 Personal history of nicotine dependence
CPT/HCPCS: 71271

== ENCOUNTER → 2024-09-09 07:23 | Outpatient (BNV) | payer OTHER, SELFPAY | PROVIDERS: PCP Internal Medicine; Visit Provider Specialist | DX: Z12.2 Encounter for screening for malignant neoplasm of respiratory organs (principal); Z87.891 Personal history of nicotine dependence | CPT/HCPCS: 71271 ==

== ENCOUNTER 2024-09-12 08:21 | Outpatient (AMB) | payer OTHER, SELFPAY ==
--- NOTE | 2024-09-12 08:22 | A.OFFVIS_ITS ---
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 Headaches have been persistent and almost daily with characteristics of tension-type pain without photophobia, except during migraines. Allergies acetaminophen (From PERCOCET) Allergy (Intermediate, Verified 09/12/24 08:25) HIVES oxycodone (From PERCOCET) Allergy (Intermediate, Verified 09/12/24 08:25) HIVES Medication List - Last Reconciled 09/12/24 by KARAN Wagner blood sugar diagnostic (FreeStyle Lite Strips) Use 1 strip once a day blood-glucose meter (FreeStyle Lite Meter kit) As directed bupropion HCl XL 150 mg PO QAM 90 days buspirone 10 mg PO TID 90 days calcium carbonate 500 mg PO BID 90 days cholecalciferol (vitamin D3) 25 mcg PO DAILY 90 days lancets (FreeStyle Lancets) Use 1 lancet once a day magnesium oxide 400 mg PO BEDTIME 90 days metformin 500 mg PO DAILY 90 days oxybutynin chloride 5 mg PO BID 90 days rosuvastatin 20 mg PO DAILY 90 days sennosides (senna) 8.6 mg PO BEDTIME PRN 30 days topiramate 25 mg PO BEDTIME 90 days HPI Comments Details: History of Present Illness The patient is a 63-year-old right-handed female presenting with migraine. These headaches started 10-15 years ago without known preceding cause. Initially, the headaches were sporadic. The patient reports that migraines have become more frequent over the past six to seven months, increasing to a daily headache pattern. She attributes part of the cause to stress but is uncertain if other factors are contributing. She denies any preceding infection, accident, or head injury preceding either the onset of the headache 10-15 years ago or preceding the more recent increase in headache frequency. When the headaches began to occur more frequently, patient began to use ibuprofen more frequently, up to ibuprofen 600 mg 1-2 times per day by a daily basis. Thus, she address this with her primary care physician, who prescribed Topiramate, which showed efficacy and reduced frequency to about once a week for some time. However, recent weeks have seen a recurrence of increased frequency- now having 2-3 headache days per week. PCP also had ordered sumatriptan, but patient ever felt the need to take it, and generally expresses that she is hesitant to add additional medications if not necessary, as she is already taking so many medications. Today, patient states she would like to understand the causes of her headache and to optimize treatment as able. Surgical History: - Excision of basal cell carcinoma (facial, right congregational region) Relevant medication: - Topiramate 25 mg q.h.s. for migraine prevention - Ibuprofen 600 mg as needed for migraine pain - Calcium and Vitamin D for osteopenia - Magnesium supplement - Ozem patch for weight management- started last week - Not using prescribed Sumatriptan Results - No available head imaging Review of Systems - Neurological: Reports chronic headaches; denies recent seizures, visual disturbances, or head trauma. - Otorhinolaryngological: Reports dizziness, hearing loss-has hearing aids; denies nasal congestion or auditory hallucinations. - Respiratory: Reports her COPD is mild. Denies recent respiratory infections. - Cardiovascular: Denies hypertension or coronary artery disease or history of syncope.. - Gastrointestinal: Reports constipation; denies nausea or vomiting. - : Urinary incontinence - Musculoskeletal: Denies significant joint, neck or back pain. - Integumentary: Status post excision basal cell carcinoma; denies new lesions. - Endocrine: Last hemoglobin A1c 6.5%. Denies symptoms of hyper- or hypothyroidism. - Psychiatric: Reports depression and anxiety. Denies bipolar disorder. - Constitutional: Denies fevers, weight loss; reports recent weight gain difficulty managing weight. 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 States she was a bit slow to meet her early developmental milestones, however eventually reached all of her developmental milestones without significant difficulty. Family History - as below Headache Review Headache questionnaire: Onset of initial headache symptoms: 10-15 years ago Initial precipitating cause of this headache: None Previous workup for this headache: None Types of headache disorders: Migraine Typical headache characteristics: Prodrome symptoms: denies Aura: denies Pain intensity: [id number] Location, quality, characteristics: Bifrontal pain, and when more severe, it will feel like a weight is sitting on the top of her head. Associated symptoms: when more severe will have photophobia, phonophobia,rare allodynia, lightheadedness, fatigue, cognitive difficulties, activity intolerance, Postdrome: denies Triggers: fragrances- simona yankee candle/bath & body works, stress, hunger Aggravating factors: noise Time of day: No specific time of day Duration and Frequency: 2-3 migraine days per week in the last month How does headache impact your life? sometimes has to lay down and not do any activities Current acute medication used for this headache: Ibuprofen 600 mg 1-2 time per day as needed Current preventative medication used for this headache: Topiramate 25 mg daily at bedtime (to be increased to 50 mg) Current non-pharmacological interventions for this headache: Brief rest Headache Lifestyle Factors - Caffeine: Consumes 2-3 cups of coffee in the morning. - Exercise: Attempts daily walks; interrupted by weather conditions. - Sleep: Sleeps 5-7 hours per night; wakes once at night for urination. - Stress: Experienced in her home/work environment, affecting sleep. 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 - Exercise: Attempts daily walks, hindered by weather. - Nutrition: Describes a diet high in red meat and sweets; limited fruits and vegetables. - Substance Use: Former smoker and alcohol user; bariatric surgery for weight management not mentioned. Nutrition The patient's dietary intake includes a significant amount of red meat and sweets with limited fruits and vegetables. She experiences difficulty regulating weight and diet, despite previous attempts to alter her dietary habits. Supplement intake includes calcium, Vitamin D, and magnesium, the latter of which is considered beneficial for migraine management, and uses an Ozem patch for weight loss support. Exercise The patient attempts to walk daily, though recent weather has limited her ability to maintain consistency. She uses this exercise for weight management and stress relief. Sleep - Typical sleep duration: 5 to 7 hours per night. - Sleep interruptions: Wakes once per night, usually to urinate. - Bedtime routine: Hasn't disclosed specific bedtime. - Caffeine: Consumes 2 to 3 cups of coffee daily in the morning. - Endorses snoring, weight gain, unrefreshing sleep, nocturia, daytime sleepiness - [place] sleepiness scale: 10 - Pertinent denials: Denies RLS symptoms, leg cramps, bruxism. Substance Use History - Alcohol: Former use of 12-18 beers daily, abstinent for over four years. - Tobacco: Former smoker, abstinent for five years. - Recreational Drugs: Denies current or past use. 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 - Actively seeking new employment; encounters difficulty due to market conditions. [facility] Medical History (Updated 09/13/24 @ 18:30 by KARAN Wagner) History of prematurity Dyslipidemia Mild recurrent major depression PROSPER (generalized anxiety disorder) History of alcohol abuse Osteopenia Personal history of nicotine dependence Personal history of COVID-19 Urinary incontinence Hearing loss Surgical History History of colonoscopy History of surgery History of section History of arthroscopy of right knee History of laparoscopic cholecystectomy Family History Father Hypertension Mother CVD (cardiovascular disease) Paternal Grandmother Diabetes Social History Housing: Apartment Alcohol intake: former Patient Tobacco Use Status: Former Tobacco user Tobacco use type: Cigarette Years Smoked: (former smoker - onset 14yo, 1ppd x 43yrs, 40pyh - quit 2017) e-Cigarette/Vaping Use: Never Used Second Hand Smoke Exposure: No service: No Current occupational status: employed Current occupational exposures/hazards: No Cognitive needs: No Hearing needs: No Vision needs: Yes Physical Exam Vital Signs: Last Vital Signs Pulse 83 09/12/24 08:23 BP 118/82 09/12/24 08:23 Pulse Ox 97 09/12/24 08:23 Oxygen Delivery Method Room Air 09/12/24 08:23 BMI result Body Mass Index 34.5 Const Orientation/consciousness: patient oriented x3 Resp Effort & Inspection: normal respiratory effort and able to speak in complete sentences Neuro Other: Mallampati stage IV No palpable scalp tenderness. General: patient oriented x3 Cranial nerves: Yes CN's II-XII intact bilaterally Cognition (Neuro): normal cognition Gait exam (Neuro): Normal gait present Motor exam (neuro): 5/5 motor strength present throughout Deep tendon reflexes (DTR's): Right triceps reflex intensity grade: 2+, Left triceps reflex intensity grade: 2+, Rt Biceps (C5, C6): 2+, Left biceps reflex intensity grade: 2+, Right brachioradialis reflex intensity grade: 2+, Left brachioradialis reflex intensity grade: 2+, Right patellar reflex intensity grade: 2+ and Left patellar reflex intensity grade: 2+ Coordination: [id number] test normal, tandem gait normal and Romberg test negative Pupils: Normal pupillary reactivity/response: bilateral Psych Appearance: grossly normal Mental Status: mental status grossly normal Speech and movement: Normal speech and movement present Affect: normal affect Attitude: cooperative Thought process: Normal thought process present Assessment & Plan Assessment & Plan (1) Worsening headaches: Code(s): R51.9 - Headache, unspecified Category: Medical (2) Excessive daytime sleepiness: Code(s): G47.19 - Other hypersomnia Category: Medical (3) Snoring: Code(s): R06.83 - Snoring Category: Medical (4) Obesity (BMI 30.0-34.9): Code(s): E66.811 - Obesity, class 1 Category: Medical (5) Migraine without aura: Code(s): G43.009 - Migraine without aura, not intractable, without status migrainosus Category: Medical Qualifiers: Intractability: not intractable Status migrainosus presence: without status migrainosus Qualified Code(s): G43.009 - Migraine without aura, not intractable, without status migrainosus Plan Discussion Notes After discussing the patient's symptoms and examining her, I recommend conducting an MRI of the brain to rule out secondary causes of her intensified migraines, given her age. We also plan a home sleep study to investigate potential sleep apnea, which could exacerbate headaches. Increasing her Topiramate dosage from 25 mg to 50 mg was advised, especially as she tolerates the current dose well. We discussed the potential side effects, including taste changes, visual changes, and possible kidney stones. Continuing ibuprofen as needed remains appropriate due to its effectiveness and considering reducing current prescription medications to reduce interactions and potential overlapping side effects. Further evaluation of labs including thyroid function was considered, as current fatigue and headaches warrant a look into it. Patient was informed and verbally consented to the use of an ambient scribe for clinic note documentation during this visit. You are advised to undergo: Brain MRI with and without contrast Home sleep study Fasting labs For overall headache management: * Optimize good self-care, including but not limited to maintaining a healthy diet, adequate fluid intake, adequate sleep, and engaging in regular physical activity. * Track headaches and both positive and negative effects of your headache treatment trials, especially after any treatment regimen changes. * Migraine BuddiGydget is one of many headache tracking apps. * A simple paper calendar is also a good option. * Non-pharmacological interventions which may help to alleviate your headache attack frequency, severity, and associated symptoms: For light sensitivity: You may benefit from trying blue light filtering glasses, FL-41 blue light filter in glasses, green glasses, green light therapy. For sound sensitivity: You may benefit from trying noise cancellation ear plugs. For acute (as needed) headache treatment: It is important to take acute medications at the first sign of headache. However, please be aware that frequently using most acute medications may increase the frequency of your headache attacks, as well as make your other treatments less effective.. * Continue ibuprofen 600 mg every 4-6 hours as needed, max of 1200 mg per day Previous acute migraine medication trials: None other. Note, patient never tried sumatriptan 25 mg ordered by her PCP. Acute migraine medication contraindications: None at this time For headache prevention medication: Preventative medications should be taken routinely as prescribed for best effect, it may take several weeks for full effect to take effect. Continue Magnesium 400mg daily at bedtime * Magnesium comes in many subtypes, such as magnesium oxide, glycinate, citrate, and even try magnesium combinations. Additionally magnesium comes in many forms, including tablets, capsules, powders or even liquid formulations. There is not a specific magnesium subtype or form known to be significantly more effective than another. Rather, the magnesium subtype inform that you best tolerate, is the best version for you. * Possible side effects of magnesium include, but are not limited to, GI upset, abdominal cramping, loose stools, and diarrhea Increase Topiramate IR to 50 mg daily at bedtime. * Potential] adverse effects of Topiramate, include but are not limited to fatigue, cognitive changes, paresthesias (tingling), vision changes, kidney stones. Previous migraine prevention medication trials: None Migraine prevention medication contraindications: Caution with beta-blockers due to COPD diagnosis. Caution with CGRP monoclonal antibodies, as patient expresses needle phobia. Pt seen in collaboration w/ Dr Lucille Paris. We will follow-up upon review of above and with a follow-up clinic visit in 6 months or sooner as needed. Orders: Orders MR head/brain wo/w con 09/12/24 C44.310 - Basal cell carcinoma of skin of unspecified parts of face, E11.9 - Type 2 diabetes mellitus without complications, E78.5 - Hyperlipidemia, unspecified, F10.11 - Alcohol abuse, in remission, R51.9 - Headache, unspecified, Z87.898 - Personal history of other specified conditions RT home sleep study 09/12/24 G47.19 - Other hypersomnia, J98.11 - Atelectasis, R06.02 - Shortness of breath, R06.83 - Snoring Medications: New topiramate (Topamax) 50 mg PO BEDTIME 90 tabs 1RF 90 days ibuprofen Max of 15 days per month 600 mg PO Q6H PRN 30 tabs 3RF migraine headache 30 days MDD 2 tabs Discontinued topiramate Discontinued Reason: Doctor's Order 25 mg PO BEDTIME 90 days 90 tabs 1RF G43.909 - Migraine, unspecified, not intractable, without status migrainosus Coding Level of Care Code New Pt Level 4 (27989) Diagnoses Worsening headaches R51.9 Excessive daytime sleepiness G47.19 Snoring R06.83 Obesity (BMI 30.0-34.9) E66.811 Migraine without aura and without status migrainosus, not intractable G43.009 Intractability: not intractable Status migrainosus presence: without status migrainosus
[2024-09-12 08:23] VITALS: BP 118/82; PULSE 83; O2SAT 97; BMI 34.5
--- OUTSIDE RECORDS SUMMARY | 2024-09-12 08:29 | XMS_ITS | Clinical Summary ---
Author Organization [employer] Address [address] [facility] [address] [place] [address] Care Team Providers Care Vice President Global Digital Marketing Name Role Phone Unavailable Primary Care Provider [...]
--- OUTSIDE RECORDS SUMMARY | 2024-09-12 08:29 | XMS_ITS | Clinical Summary ---
Author Organization [facility] Address [address] [place] [address] Phone Care Team Providers Care Sales Consultant Residential Manager Name Role Phone Kalyani Carr MD Primary [...] [place] Care Teams Sales Consultant Residential Manager Relationship Specialty Start Date End Date Kalyani Carr MD [address] [place] [address] PCP - General Internal Medicine 09/01/23 Additional Source Comments The information contained in this document represents components of the legal health record. It is not the complete legal health record.[facility]
--- OUTSIDE RECORDS SUMMARY | 2024-09-12 08:29 | XMS_ITS | Patient Health Record ---
Author Organization [facility] Address [address] [place] [address] Care Team Providers Care Human Resource Statistician Name Role Phone Kalyani Carr Primary Care [...] Problem Status W/U Status Risk Notes Problem [id number] Elevated liver enzymes (R74.8) Active confirmed Problem [id number] Liver cyst (K76.89) Active confirmed Plan Of Treatment Pending Test Test Name Order Date LIVER PROFILE 10/16/2019 Insurance Providers Payer Name Payer Address Payer Phone Subscriber Number Group Number Insured Name Patient Relationship to Insured Coverage Start Date Coverage End Date Cigna PPO [address] [place] [phone] [id number] [id number] Self - patient is the insured Medical (General) History Medical History History ICD Code depression overactive bladder (OAB) anxiety Surgical History Surgery Date(Month/Year) arthroscopic knee surgery 2008 section 1983 cholecystectomy 2010
== END 2024-09-12 09:43 | disposition home or self-care (01) ==
LOC: HO.HSMS 08:22
PROVIDERS: PCP Internal Medicine; Visit Provider Nurse Practitioner Family
DX: R51.9 Headache, unspecified (principal); G47.19 Other hypersomnia; R06.83 Snoring; E66.811 Obesity, class 1; G43.009 Migraine without aura, not intractable, without status migrainosus
CPT/HCPCS: 99204

== ENCOUNTER → 2024-09-12 08:21 | Outpatient (BNVA) | payer OTHER, SELFPAY | PROVIDERS: PCP Internal Medicine; Visit Provider Nurse Practitioner Family | DX: G43.009 Migraine without aura, not intractable, without status migrainosus (principal); G47.19 Other hypersomnia; R06.83 Snoring; E66.811 Obesity, class 1 | CPT/HCPCS: 99202 ==

== ENCOUNTER 2024-09-16 06:16 | Outpatient (REF) | payer OTHER, SELFPAY ==
[2024-09-16 07:02] LABS: MANUAL DIFF FLAG NO
[2024-09-16 07:37] LABS: Hematocrit 43.2 % (37.0-47.0); Hemoglobin 14.6 g/dl (12.0-16.0); Imm Gran Abs Auto 0.01 X10*3/uL (0.00-0.03); Imm Gran Pct Auto 0.2 % (0.0-0.4); Lymphocytes Absolute Auto 1.6 X10*3/uL (1.2-4.9); Mean Corpuscular HGB Conc 33.8 g/dl (31.0-35.0); Mean Corpuscular Hemoglobin 30.0 pg (27.0-33.0); Mean Corpuscular Volume 88.7 fL (80.0-98.0); NRBC Abs Auto 0.000 X10*3/uL (0.0-0.012); NRBC Pct Auto 0.0 /100WBC (0.0-0.2); Platelet Count 254 X10*3/uL (160-400); Red Blood Count 4.87 X10*6/uL (4.20-5.50); White Blood Count 5.6 X10*3/uL (4.8-10.8)
[2024-09-16 08:42] LABS: Folate 13.2 ng/mL (> or = 4.0); Vitamin B12 683 pg/mL (200-900)
== END 2024-09-16 06:17 | disposition home or self-care (01) ==
LOC: HO.LAB 06:16
PROVIDERS: PCP Internal Medicine; Visit Provider Nurse Practitioner Family
DX: F41.1 Generalized anxiety disorder (principal); E11.9 Type 2 diabetes mellitus without complications; R53.83 Other fatigue
CPT/HCPCS: 36415; 82607; 82746; 84443; 85025

== ENCOUNTER 2024-09-26 13:47 | Outpatient (REF) | payer OTHER, SELFPAY ==
--- NOTE | ~2024-09-26 | MR_ITS ---
CLINICAL HISTORY: R51.9 - Headache, unspecified --- Additional Notes or Special Instructions: Patient with 10-15 year history of headache, increase to daily last several MR Brain with and without gadolinium Comparison: None provided Findings: No restricted diffusion. No intra-axial mass or hemorrhage. Tiny T2 FLAIR hyperintense focus in the right frontal white matter likely due to minimal age-related small-vessel ischemic changes. Otherwise unremarkable brain. No midline shift. No hydrocephalus. Vascular flow voids are intact. The orbits are normal. Partial opacification/mucosal thickening in the left frontal and ethmoid sinuses. Complete opacification of the sphenoid sinuses ( due to combination of mucosal thickening and fluid). No focal bone lesion. No abnormal intracranial enhancement. Postsurgical nasal changes. IMPRESSION: Partial opacification/mucosal thickening in the left frontal and ethmoid sinuses. Complete opacification of the sphenoid sinuses (due to combination of mucosal thickening and fluid). Tiny T2 FLAIR hyperintense focus in the right frontal white matter likely due to minimal age-related small-vessel ischemic changes. Otherwise unremarkable brain. This document has been electronically signed by: Lauryn Gonzalez MD on 09/27/2024 13:14:51
--- OUTSIDE RECORDS SUMMARY | 2024-09-26 13:56 | XMS_ITS | Clinical Summary ---
Author Organization [employer] Address [address] [facility] [address] [place] [address] Care Team Providers Care Building Wrecker Name Role Phone Unavailable Primary Care Provider [...]
--- OUTSIDE RECORDS SUMMARY | 2024-09-26 13:56 | XMS_ITS | Clinical Summary ---
Author Organization [facility] Address [address] [place] [phone] Phone Care Team Providers Care Road Service Locksmith Name Role Phone Kalyani Carr MD Primary [...] [place] Care Teams Road Service Locksmith Relationship Specialty Start Date End Date Kalyani Carr MD [address] [place] [address] PCP - General Internal Medicine 09/01/23 Additional Source Comments The information contained in this document represents components of the legal health record. It is not the complete legal health record.[facility]
--- OUTSIDE RECORDS SUMMARY | 2024-09-26 13:56 | XMS_ITS | Patient Health Record ---
Author Organization [facility] Address [address] [place] [address] Care Team Providers Care Liquor Establishment Manager Name Role Phone Kalyani Carr Primary [...] Problem Status W/U Status Risk Notes Problem [id number] Elevated liver enzymes (R74.8) Active confirmed Problem [id number] Liver cyst (K76.89) Active confirmed Plan Of Treatment Pending Test Test Name Order Date LIVER PROFILE 10/16/2019 Insurance Providers Payer Name Payer Address Payer Phone Subscriber Number Group Number Insured Name Patient Relationship to Insured Coverage Start Date Coverage End Date Cigna PPO [address] [place] [phone] [id number] DAO GHOSH Self - patient is the insured Medical (General) History Medical History History ICD Code depression overactive bladder (OAB) anxiety Surgical History Surgery Date(Month/Year) arthroscopic knee surgery 2008 section 1983 cholecystectomy 2010
== END 2024-09-26 13:48 | disposition home or self-care (01) ==
LOC: HO.MRI 13:47
PROVIDERS: PCP Internal Medicine; Visit Provider Nurse Practitioner Family
DX: R51.9 Headache, unspecified (principal); C44.310 Basal cell carcinoma of skin of unspecified parts of face; E78.5 Hyperlipidemia, unspecified; F10.11 Alcohol abuse, in remission; E11.9 Type 2 diabetes mellitus without complications; Z87.898 Personal history of other specified conditions
CPT/HCPCS: 70553; A9585

== ENCOUNTER → 2024-09-26 13:54 | Outpatient (BNV) | payer OTHER, SELFPAY | PROVIDERS: PCP Internal Medicine; Visit Provider Radiology Diagnostic Radiology | DX: R51.9 Headache, unspecified (principal); J32.1 Chronic frontal sinusitis; J32.2 Chronic ethmoidal sinusitis; J32.3 Chronic sphenoidal sinusitis | CPT/HCPCS: 70553 ==

== ENCOUNTER → 2024-12-03 14:45 | Outpatient (REF) | payer OTHER, SELFPAY ==
--- OUTSIDE RECORDS SUMMARY | 2024-12-03 19:12 | XMS_ITS | Patient Health Record ---
Author Organization [facility] Address [address] [place] [address] Care Team Providers Care Ocular Care Aide Name Role Phone Kalyani Carr Primary Care Provider Johnny Buckner Jr Unavailable [phone] Allergies Allergen (clinical drug ingredient) Drug/Non Drug [...] Problem Status W/U Status Risk Notes Problem Elevated liver enzymes level ([id number]) Elevated liver enzymes (R74.8) Active confirmed Problem Liver cyst (84846547) Liver cyst (K76.89) Active confirmed Plan Of Treatment Pending Test Test Name Order Date LIVER PROFILE 10/16/2019 Insurance Providers Payer Name Payer Address Payer Phone Subscriber Number Group Number Insured Name Patient Relationship to Insured Coverage Start Date Coverage End Date Cigna PPO [address] [place] [phone] [id number] DAO GHOSH Self - patient is the insured Medical (General) History Medical History History ICD Code depression overactive bladder (OAB) anxiety Surgical History Surgery Date(Month/Year) arthroscopic knee surgery 2008 section 1983 cholecystectomy 2010
--- OUTSIDE RECORDS SUMMARY | 2024-12-03 19:12 | XMS_ITS | Clinical Summary ---
Author Organization [employer] Address [address] [facility] [address] [place] [address] Care Team Providers Care Marketing Representative Name Role Phone Unavailable Primary Care Provider [...] COVID-19 Vaccine ( - 2023-2 5 season) 2024 Influenza Vaccine (#1) 2024 RSV Patients and [...]
--- OUTSIDE RECORDS SUMMARY | 2024-12-03 19:12 | XMS_ITS | Encounter Summary ---
Author Organization [facility] Address [address] [place] [address] Phone Care Team Providers Care Forensic Identification Specialist Name Role Phone Kalyani Carr MD Primary Care Provid er Encounter Details Date Type Department Care Team (Late st Contact Info) Description 10/27/2023 Procedure Pass OR Admitting Dept - Virtual Department [address] [place] [address] Social History Tobacco Use Types Packs/Day Years Used Date Smoking Tobacco: Never Alcohol Use Standard Drinks/Week Comments Not Currently [...] Diagnoses Not on filedocumented in this encounter Care Teams Forensic Identification Specialist Relationship Specialty Start Date End Date Kalyani Carr MD [address] [place] [phone] PCP - General Internal Medicine 09/01/23 documented as of this encounter Additional Source Comments The information contained in this document represents components of the legal health record. It is not the complete legal health record.[facility]
--- OUTSIDE RECORDS SUMMARY | 2024-12-03 19:12 | XMS_ITS | Clinical Summary ---
Author Organization [facility] Address [address] [place] [phone] Phone Care Team Providers Care Coin Purse Framer Name Role Phone Kalyani Carr MD Primary [...] 2012 ZOSTER VACCINES (1 of 2) 2012 INFLUENZA VACCINE (#1) 2024 9, 11/07/2017, 11/22/2016 COVID-19 VACCINE (4 2024-2 6 season) 2024 12/10/2020, 05/22/2020, 04/24/2020 Adult Td,Tdap Booster 05/24/2025 [...] [place] Care Teams Coin Purse Framer Relationship Specialty Start Date End Date Kalyani Carr MD [address] [place] [address] PCP - General Internal Medicine 09/01/23 Additional Source Comments The information contained in this document represents components of the legal health record. It is not the complete legal health record.[facility]
== END ==
LOC: HO.SL 14:45
PROVIDERS: PCP Internal Medicine; Visit Provider Nurse Practitioner Family
DX: R06.83 Snoring (principal); G47.19 Other hypersomnia; R06.02 Shortness of breath; J98.11 Atelectasis
CPT/HCPCS: 95806

== ENCOUNTER → 2024-12-03 14:54 | Outpatient (BNV) | payer OTHER, SELFPAY | PROVIDERS: PCP Internal Medicine; Visit Provider Psychiatry & Neurology Neurology | DX: R06.83 Snoring (principal) | CPT/HCPCS: 95806 ==

== ENCOUNTER 2024-12-19 06:11 | Outpatient (REF) | payer OTHER, SELFPAY ==
--- OUTSIDE RECORDS SUMMARY | 2024-12-19 06:13 | XMS_ITS | Patient Health Record ---
Author Organization [facility] Address [address] [place] [address] Care Team Providers Care Dairy Hand Name Role Phone Kalyani Carr Primary Care [...] Risk Notes Problem Elevated liver enzymes level (232794460) Elevated liver enzymes (R74.8) Active confirmed Problem Liver cyst (12815649) Liver cyst (K76.89) Active confirmed Plan Of Treatment Pending Test Test Name Order Date LIVER PROFILE 10/16/2019 Insurance Providers Payer Name Payer Address Payer Phone Subscriber Number Group Number Insured Name Patient Relationship to Insured Coverage Start Date Coverage End Date Cigna PPO [address] [place] [phone] [id number] DAO GHOSH Self - patient is the insured Medical (General) History Medical History History ICD Code depression overactive bladder (OAB) anxiety Surgical History Surgery Date(Month/Year) arthroscopic knee surgery 2008 section 1983 cholecystectomy 2010
--- OUTSIDE RECORDS SUMMARY | 2024-12-19 06:13 | XMS_ITS | Clinical Summary ---
Author Organization [facility] Address [address] [place] [phone] Phone Care Team Providers Care Curam Developer Name Role Phone Kalyani Carr MD Primary [...] patient's age to complete this topic IPV VACCINES Aged Out No longer eligi ble based on patient's age to complete this topic MENINGOCOCCAL VACCINES (ACWY) Aged Out No longer eligible based on patient's age to complete this topic MENINGOCOCCAL VACCINES (B) Aged Out N o longer eligible based on patient's age to complete this topic Medical Devices Not on file Insurance [facility] [place] Care Teams Curam Developer Relationship Specialty Start Date End Date Kalyani Carr MD [address] [place] [address] PCP - General Internal Medicine 09/01/23 Additional Source Comments The information contained in this document represents components of the legal health record. It is not the complete legal health record.[facility]
--- OUTSIDE RECORDS SUMMARY | 2024-12-19 06:13 | XMS_ITS | Clinical Summary ---
Author Organization [employer] Address [address] [facility] [address] [place] [address] Care Team Providers Care Assistant General Manager Name Role Phone Unavailable Primary Care [...] of 2) 2012 COVID-19 Vaccine ( - 2024-2 6 season) 2024 Influenza Vaccine (#1) 2024 RSV [...]
--- OUTSIDE RECORDS SUMMARY | 2024-12-19 06:13 | XMS_ITS | Encounter Summary ---
Author Organization [facility] Address [address] [place] [address] Phone Care Team Providers Care Food Production Associate Name Role Phone Kalyani Carr MD Primary Care Provid er Encounter Details Date Type Department Care Team (Late st Contact Info) Description 10/27/2023 Procedure Pass OR Admitting Dept - Virtual Department [address] [place] [address] Social History Tobacco Use Types Packs/Day Years [...] on filedocumented in this encounter Care Teams Food Production Associate Relationship Specialty Start Date End Date Kalyani Carr MD [address] [place] [id number] PCP - General Internal Medicine 09/01/23 documented as of this encounter Additional Source Comments The information contained in this document represents components of the legal health record. It is not the complete legal health record.[facility]
[2024-12-19 10:31] LABS: MANUAL DIFF FLAG NO
[2024-12-19 10:44] LABS: Hematocrit 42.3 % (37.0-47.0); Hemoglobin 14.2 g/dl (12.0-16.0); Imm Gran Abs Auto 0.02 X10*3/uL (0.00-0.03); Imm Gran Pct Auto 0.2 % (0.0-0.4); Lymphocytes Absolute Auto 1.8 X10*3/uL (1.2-4.9); Mean Corpuscular HGB Conc 33.6 g/dl (31.0-35.0); Mean Corpuscular Hemoglobin 30.3 pg (27.0-33.0); Mean Corpuscular Volume 90.4 fL (80.0-98.0); NRBC Abs Auto 0.000 X10*3/uL (0.0-0.012); NRBC Pct Auto 0.0 /100WBC (0.0-0.2); Platelet Count 286 X10*3/uL (160-400); Red Blood Count 4.68 X10*6/uL (4.20-5.50); White Blood Count 8.7 X10*3/uL (4.8-10.8)
[2024-12-19 11:26] LABS: Microalbum/Creatinine Ratio Ur 66.2 ug/mg cr (<30)
[2024-12-19 11:28] LABS: Alanine Aminotransferase 27 U/L (0-31); Albumin Level 4.2 g/dL (3.5-5.0); Alkaline Phosphatase 86 U/L (39-117); Anion Gap 13 (12-20); Aspartate Amino Transferase 23 U/L (5-31); Blood Urea Nitrogen 13 mg/dL (9-16); Calcium 10.2 mg/dL (8.4-10.2); Carbon Dioxide 26 mmol/L (22-29); Chloride 111 mmol/L (96-108); Cholesterol 137 mg/dL (<200); Estimated Glomerular Filt Rate > 60; HDL Cholesterol 47 mg/dL (>40); Potassium 4.9 mmol/L (3.3-5.1); Sodium 145 mmol/L (135-145); Total Protein 7.6 g/dL (6.5-8.0); Triglycerides 133 mg/dL (<150)
== END 2024-12-19 06:12 | disposition home or self-care (01) ==
LOC: HO.HMGCLDS 06:11
PROVIDERS: Nurse Practitioner Family; PCP Internal Medicine; Visit Provider Internal Medicine
DX: R53.83 Other fatigue (principal); E11.9 Type 2 diabetes mellitus without complications; D72.10 Eosinophilia, unspecified; R80.9 Proteinuria, unspecified; E55.9 Vitamin D deficiency, unspecified; E78.5 Hyperlipidemia, unspecified
CPT/HCPCS: 36415; 80053; 80061; 82043; 82306; 82570; 85025; 85652; 86140

== ENCOUNTER 2024-12-24 16:29 | Outpatient (REF) | payer OTHER, SELFPAY | END 2024-12-24 16:30 | disposition home or self-care (01) | LOC: HO.LAB 16:29 | PROVIDERS: PCP Internal Medicine; Visit Provider Internal Medicine | DX: E11.9 Type 2 diabetes mellitus without complications (principal); R07.9 Chest pain, unspecified; R51.9 Headache, unspecified; F41.9 Anxiety disorder, unspecified; F33.0 Major depressive disorder, recurrent, mild; F41.1 Generalized anxiety disorder; E78.5 Hyperlipidemia, unspecified; N39.0 Urinary tract infection, site not specified; Z79.899 Other long term (current) drug therapy | CPT/HCPCS: 81003; 83036; 99212 ==

== ENCOUNTER 2024-12-24 16:29 | Outpatient (AMB) | payer OTHER, SELFPAY ==
--- NOTE | 2024-12-24 17:03 | MHC.PC.OV ---
Vital Signs 12/24/24 17:04 Height 4 ft 10 in Weight 166 lb BMI 34.7 BP 140/90 H Blood Pressure Location Lt brachial Position Sitting Respiration 18 Pulse 76 Pulse Source Pulse Oximeter Temp Source Temporal Artery Scan Pulse Oximetry (%) 95 Oxygen Delivery Method Room Air Intake Visit Reasons: dm Lead Custodian Required: No Accompanied by: Self / Same As Patient Allergies acetaminophen (From PERCOCET) Allergy (Intermediate, Verified 12/24/24 17:26) HIVES oxycodone (From PERCOCET) Allergy (Intermediate, Verified 12/24/24 17:26) HIVES Medication List - Last Reconciled 12/24/24 by Kalyani Mujica MD blood sugar diagnostic (FreeStyle Lite Strips) Use 1 strip once a day blood-glucose meter (FreeStyle Lite Meter kit) As directed bupropion HCl XL 150 mg PO QAM 90 days buspirone 10 mg PO TID 90 days calcium carbonate 500 mg PO BID 90 days cholecalciferol (vitamin D3) 25 mcg PO DAILY 90 days ibuprofen 600 mg PO Q6H PRN 30 days MDD 2 tabs lancets (FreeStyle Lancets) Use 1 lancet once a day magnesium oxide 400 mg PO BEDTIME 90 days metformin 500 mg PO DAILY 90 days oxybutynin chloride 5 mg PO BID 90 days rosuvastatin 20 mg PO DAILY 90 days sennosides (senna) 8.6 mg PO BEDTIME PRN 30 days topiramate (Topamax) 50 mg PO BEDTIME 90 days Tobacco use date assessed: 12/24/24 Dental Screening Dental Screen Date: 12/24/24 Did you have a dental visit in the last 12 months?: No Did you have a dental problem in the last 6 months where you did not have access to dental care?: No Was dental information given to patient?: No HPI HPI Comments History of Present Illness Details The patient is a 64-year-old female presenting for management of chronic conditions, review of recent lab work, and evaluation of new symptoms. Her blood pressure today is 140/90 mmHg, which she attributes to recent stress. Regarding her diabetes, her HbA1c is 6.9% and fasting glucose was 143 mg/dL. She acknowledges poor dietary adherence recently and is currently on metformin 500 mg once daily. Her cholesterol is well-controlled with an LDL of 64 mg/dL and a total cholesterol of 137 mg/dL on rosuvastatin 20 mg. Recent lab work showed normal kidney function with a GFR greater than 60, normal liver enzymes, normal calcium, normal vitamin D, and normal urine microalbumin. A chloride level of 111 was noted but deemed not clinically significant. The patient reports new onset of chest pain, described as a stabbing sensation and muscle spasm on the left side, which has occurred a couple of times this week. The pain can occur at rest and resolves with rubbing the area. Her mother had cardiomyopathy and from it. She reports continued intermittent headaches despite taking topiramate 15 mg. A recent MRI of the brain showed no acute findings, and she is scheduled for an ENT consultation in February. She also believes she has a urinary tract infection, reporting cloudy urine and burning on urination. Her current medications include bupropion for depression with anxiety, buspirone for anxiety, metformin, rosuvastatin, topiramate, oxybutynin for urinary symptoms, and supplements including calcium, vitamin D, and magnesium. She uses senna as needed for constipation. She has a reported allergy to Percocet, which causes hives. Her lung cancer screening this year was normal. [facility] Medical History (Updated 12/24/24 @ 19:30 by Kalyani Mujica MD) History of prematurity Dyslipidemia Mild recurrent major depression PROSPER (generalized anxiety disorder) History of alcohol abuse Osteopenia Personal history of nicotine dependence Personal history of COVID-19 Urinary incontinence Hearing loss Surgical History History of colonoscopy History of surgery History of section History of arthroscopy of right knee History of laparoscopic cholecystectomy Family History Father Hypertension Mother CVD (cardiovascular disease) Paternal Grandmother Diabetes Social History Housing: Apartment Alcohol intake: former Patient Tobacco Use Status: Former Tobacco user Tobacco use type: Cigarette Years Smoked: (former smoker - onset 14yo, 1ppd x 43yrs, 40pyh - quit 2017) e-Cigarette/Vaping Use: Never Used Second Hand Smoke Exposure: No service: No Current occupational status: employed Current occupational exposures/hazards: No Cognitive needs: No Hearing needs: No Vision needs: Yes Questionnaire Thrive Questionnaire Date Thrive assessed: 05/02/24 I am a: Patient What is your living situation today?: I have a steady place to live Within the past 12 months, did the food you bought not last and you didn't have the money to get more?: Never true Within the past 12 months, did you worry whether your food would run out before you got money to buy more?: Never true Do you have trouble paying for medicines?: No Do you have trouble getting transportation to medical appointments?: No Do you have trouble paying your heating and electricity bill?: No Do you have trouble taking care of your child, family member or friend?: No Do you have trouble with day-to-day activities such as bathing, preparing meals, shopping, managing finances, etc.?: No Are you currently unemployed and looking for a job?: No Are you interested in more education?: No Please select the resources that you would like help with: None Currently or been in a relationship where the following occur: No concerns reported THRIVE Score: 0 AUDIT C Alcohol Use Questionnaire (AUDIT-C) 3. How often do you have six or more drinks on one occasion?: Never Total Score: 0 PROSPER-7 AMB Questionnaire PROSPER-7 Date PROSPER - 7 assessed: 09/02/24 Source: Developed by Drs. Jan Solano, Maria C Munguia, Wilmar Suero and colleagues, with an educational dwaine from [employer]. Review of Systems Const All systems reviewed & are unremarkable except as noted in HPI and below Card Denies chest pain at rest, Denies chest pain with activity, Denies edema, Denies irregular heart rhythm, Denies claudication, Denies dyspnea, Denies dyspnea on exertion, Denies orthopnea, Denies paroxysmal nocturnal dyspnea and Denies slow heart rate Resp Denies cough, Denies dyspnea and Denies dyspnea on exertion GI Denies abdominal pain, Denies change in bowel habits, Denies excessive flatus, Denies nausea and Denies vomiting Denies urinary incontinence, Denies urinary hesitancy and Denies urinary urgency Physical exam (Primary Care) Vital Signs: Last Vital Signs Pulse 76 12/24/24 17:04 Resp 18 12/24/24 17:04 BP 140/90 H 12/24/24 17:04 Pulse Ox 95 12/24/24 17:04 Oxygen Delivery Method Room Air 12/24/24 17:04 BMI result Body Mass Index 34.7 Tobacco/Smoking Status: Tobacco use Status Tobacco use date assessed 12/24/24 12/24/24 17:05 Patient Tobacco Use Status Former Tobacco user 12/24/24 17:03 Tobacco use type Cigarette 12/24/24 17:03 e-Cigarette/Vaping Use Never Used 12/24/24 17:03 Thrive Assessment: Date of Thrive Assessment Date Thrive assessed 05/02/24 12/24/24 17:03 Currently or been in a relationship where the following occur: No concerns reported Resp Effort & Inspection: normal respiratory effort Auscultation: clear to auscultation bilaterally Cardio Jugular venous distension: no JVD Rate: regular rate Rhythm: regular rhythm Heart sounds: S1 normal heart sound present and S2 normal heart sound present Extrem General: Yes full ROM Results AMB Hemoglobin A1c AMB Hemoglobin A1c 6.9 % Last Edit by Destiney Reeves MA on 12/24/24 17:33 AMB Urinalysis, Automated UA Leukoctes 0 Francis/uL Last Edit by Destiney Reeves MA on 12/24/24 17:51 UA Nitrite Positive Last Edit by Destiney Reeves MA on 12/24/24 17:51 UA Urobilinogen 0 mg/dL Last Edit by Destiney Reeves MA on 12/24/24 17:51 UA Protein 0 mg/dL Last Edit by Destiney Reeves MA on 12/24/24 17:51 UA pH 6.0 Last Edit by Destiney Reeves MA on 12/24/24 17:51 UA Blood 1 Marcelino/uL Last Edit by Destiney Reeves MA on 12/24/24 17:51 UA Specific [place] 0 Last Edit by Destiney Reeves MA on 12/24/24 17:51 UA Ketone Negative Last Edit by Destiney Reeves MA on 12/24/24 17:51 UA Bilirubin 0 mg/dL Last Edit by Destiney Reeves MA on 12/24/24 17:51 UA Glucose 0 mg/dL Last Edit by Destiney Reeves MA on 12/24/24 17:51 Results Reviewed Results Reviewed: Laboratory Last Values Hgb A1c (Clinic) 6.9 % (4.0-6.0) H 12/24/24 17:16 Urine pH (Auto) 6.0 12/24/24 17:37 Specific [place] (Auto) 0 12/24/24 17:37 Urine Protein (Auto) 0 mg/dL 12/24/24 17:37 Glucose (UA)(Auto) 0 mg/dL 12/24/24 17:37 Urine Ketones (Auto) Negative 12/24/24 17:37 Urine Blood (Auto) 1 Marcelino/uL 12/24/24 17:37 Urine Nitrite (Auto) Positive 12/24/24 17:37 Urine Bilirubin (Auto) 0 mg/dL 12/24/24 17:37 Urine Urobilinogen (Auto) 0 mg/dL 12/24/24 17:37 Leukocyte Esterase (Auto) 0 Francis/uL 12/24/24 17:37 Coding Level of Care Code Est Pt Level 4 (06361) Complex EM visit Add On G2211 Diagnoses Chest pain R07.9 Mild recurrent major depression F33.0 PROSPER (generalized anxiety disorder) F41.1 Type 2 diabetes mellitus without complication, without long-term current use of insulin E11.9 Diabetes mellitus type: type 2 Diabetes mellitus middle or intermediate school principal insulin use: without prison use Diabetes mellitus complication status: without complication Dyslipidemia E78.5 UTI (urinary tract infection) N39.0 Time Spent (min) 22 Assessment & Plan Assessment & Plan (1) Chest pain: Code(s): R07.9 - Chest pain, unspecified Category: Medical (2) Mild recurrent major depression: Code(s): F33.0 - Major depressive disorder, recurrent, mild Category: Medical (3) PROSPER (generalized anxiety disorder): Code(s): F41.1 - Generalized anxiety disorder Category: Medical (4) Diabetes mellitus: Code(s): E11.9 - Type 2 diabetes mellitus without complications Category: Medical Qualifiers: Diabetes mellitus type: type 2 Diabetes mellitus prison insulin use: without middle or intermediate school principal use Diabetes mellitus complication status: without complication Qualified Code(s): E11.9 - Type 2 diabetes mellitus without complications (5) Dyslipidemia: Code(s): E78.5 - Hyperlipidemia, unspecified Category: Medical (6) UTI (urinary tract infection): Code(s): N39.0 - Urinary tract infection, site not specified Category: Medical Plan Plan 1. Hypertension The patient's blood pressure is borderline elevated at 140/90 mmHg, which may be related to her reported stress. No medication changes are indicated at this time, and she will continue to monitor her blood pressure at home. 2. Type 2 Diabetes Mellitus Her HbA1c is 6.9%, which is slightly elevated. She is on a low dose of metformin 500 mg once daily. The plan is to continue the current dose for now, with a follow-up lab check in four months. If her glucose levels increase, an increase in metformin dosage will be considered. 3. Chest Pain The patient reports new onset of left-sided stabbing chest pain. While this may be anxiety-related, given her maternal history of fatal cardiomyopathy, a cardiac workup is warranted. An EKG will be ordered today to rule out an acute cardiac cause. 4. Urinary Tract Infection The patient presents with symptoms of a urinary tract infection, including cloudy urine and dysuria. A urine dipstick test will be performed in the office today to confirm the diagnosis. 5. Headaches The patient continues to experience intermittent headaches despite being on topiramate 15 mg. A recent MRI of the brain was unremarkable. She has an upcoming consultation with an ENT specialist in February, and will continue her current regimen pending that evaluation. 6. Hypercholesterolemia Her cholesterol is well-controlled with rosuvastatin, with an LDL of 64 mg/dL. She will continue her current medication, with labs to be repeated in four months. Orders: Orders AMB Hemoglobin A1c Today Z13.9 - Encounter for screening, unspecified ECG 12 lead EKG Today R07.9 - Chest pain, unspecified Lipid Panel 4 Months E78.5 - Hyperlipidemia, unspecified Vitamin B12 and Folate 4 Months E53.8 - Deficiency of other specified B group vitamins Comprehensive [place]. Panel Fast 4 Months E11.9 - Type 2 diabetes mellitus without complications AMB Urinalysis Automated Today Z13.9 - Encounter for screening, unspecified Urine Culture Today N39.0 - Urinary tract infection, site not specified Microalbumin, Random (w Creat) 4 Months R80.9 - Proteinuria, unspecified Vitamin D 25-OH Total 4 Months E55.9 - Vitamin D deficiency, unspecified Medications: New nitrofurantoin macrocrystal must administer with a meal/food 100 mg PO BID 14 caps 0RF 7 days
[2024-12-24 17:04] VITALS: BP 140/90; PULSE 76; RESP 18; O2SAT 95; BMI 34.7
--- OUTSIDE RECORDS SUMMARY | 2024-12-25 13:25 | XMS_ITS | Clinical Summary ---
Author Organization [employer] Address [address] [facility] 7[address] [place] [address] Care Team Providers Care Surface Supervisor Name Role Phone Unavailable Primary Care Provider [...]
--- OUTSIDE RECORDS SUMMARY | 2024-12-25 13:25 | XMS_ITS | Patient Health Record ---
Author Organization [facility] Address [address] [place] [address] Care Team Providers Care Property Controller Name Role Phone Kalyani Carr Primary Care [...] Vitamin B 12 Active Ibuprofen 600 MG Tablet Orally PRN Active buPROPion HCl ER (XL) Active busPIRone HCl Active Immunizations Vaccine Route Administration Date Status Comme nts Influenza Unknown 11/07/2018 Administered Social History Tobacco Use: Social History Observation Description Date Details (start date - stop date) Former Smoker NA - 02/05/2018 Social History Drugs/Alcohol: Social Info Question Answer Notes Alcohol Screen Did you have a drink containing alcohol in the past year? No Points 0 Interpretation Negative Tobacco Use: Social Info Question Answer Notes Tobacco Use/Smoking Patient is a former smoker When did you start smoking? 14 years old When did you stop smoking? 02/05/2018 How long has it been since you last smoked? > 10 years Additional Findings: Tobacco User Heavy cigarett e smoker (20-39 cigs/day) Additional Findings: Tobacco Non-User Ex-cigaret te smoker Additional Details Category Social Info Options Details Miscellaneous: Marital status: Occupation: works Full - [employer] Coding Problems Problem Type SNOMED Code ICD Code Onset Dates Problem Status W/U Status Risk Notes Problem Elevated liver enzymes level (073890040) Elevated liver enzymes (R74.8) Active confirmed Problem Liver cyst (06461955) Liver cyst (K76.89) Active confirmed Plan Of Treatment Pending Test Test Name Order Date LIVER PROFILE 10/16/2019 Insurance Providers Payer Name Payer Address Payer Phone Subscriber Number Group Number Insured Name Patient Relationship to Insured Coverage Start Date Coverage End Date Cigna PPO [address] [place], [place] [phone] [id number] DAO GHOSH Self - patient is the insured Medical (General) History Medical History History ICD Code depression overactive bladder (OAB) anxiety Surgical History Surgery Date(Month/Year) arthroscopic knee surgery 2008 section 1983 cholecystectomy 2010
--- OUTSIDE RECORDS SUMMARY | 2024-12-25 13:25 | XMS_ITS | Clinical Summary ---
Author Organization [facility] Address [address] [place] [phone] Phone Care Team Providers Care Cement Tester Assistant Name Role Phone Kalyani Carr MD Primary [...] topic Medical Devices Not on file Insurance [facility] [place] Care Teams Cement Tester Assistant Relationship Specialty Start Date End Date Kalyani Carr MD [address] [place] [address] PCP - General Internal Medicine 09/01/23 Additional Source Comments The information contained in this document represents components of the legal health record. It is not the complete legal health record.[facility]
--- OUTSIDE RECORDS SUMMARY | 2024-12-25 13:25 | XMS_ITS | Encounter Summary ---
Author Organization [facility] Address [address] [place] [address] Phone Care Team Providers Care Mine Inspector Name Role Phone Kalyani Carr MD Primary Care Provid er Encounter Details Date Type Department Care Team (Late st Contact Info) Description 10/27/2023 Procedure Pass OR Admitting Dept - Virtual Department [address] [place] [address] Social History Tobacco Use Types Packs/Day Years [...] on filedocumented in this encounter Care Teams Mine Inspector Relationship Specialty Start Date End Date Kalyani Carr MD [address] [place] [id number] PCP - General Internal Medicine 09/01/23 documented as of this encounter Additional Source Comments The information contained in this document represents components of the legal health record. It is not the complete legal health record.[facility]
== END 2024-12-24 17:45 | disposition home or self-care (01) ==
LOC: HO.HMCH 16:30
PROVIDERS: PCP Internal Medicine; Visit Provider Internal Medicine
DX: R07.9 Chest pain, unspecified (principal); F33.0 Major depressive disorder, recurrent, mild; F41.1 Generalized anxiety disorder; E11.9 Type 2 diabetes mellitus without complications; E78.5 Hyperlipidemia, unspecified; N39.0 Urinary tract infection, site not specified; Z13.9 Encounter for screening, unspecified

== ENCOUNTER → 2024-12-25 08:49 | Outpatient (REF) | payer OTHER, SELFPAY ==
--- NOTE | 2024-12-25 08:54 | ECG_ITS ---
Test Reason : CHEST PAIN Blood Pressure : */* mmHG Vent. Rate : 74 BPM Atrial Rate : 77 BPM P-R Int : 170 ms QRS Dur : 88 ms QT Int : 388 ms P-R-T Axes : 67 -2 55 degrees QTcB Int : 430 ms Normal sinus rhythm with sinus arrhythmia Normal ECG No previous ECGs available Referred By: Kalyani Mujica Electronically Signed By: GINI BOJORQUEZ
== END ==
LOC: HO.CARD 08:49
PROVIDERS: PCP Internal Medicine; Visit Provider Internal Medicine
DX: R07.9 Chest pain, unspecified (principal)
CPT/HCPCS: 93005

== ENCOUNTER → 2024-12-25 08:54 | Outpatient (BNV) | payer OTHER, SELFPAY | PROVIDERS: PCP Internal Medicine; Visit Provider Internal Medicine | DX: R07.9 Chest pain, unspecified (principal) | CPT/HCPCS: 93010 ==

== ENCOUNTER 2025-01-13 09:33 | Outpatient (REF) | payer OTHER, SELFPAY ==
[2025-01-13 13:43] LABS: Appearance Urine Turbid; Glucose Urine UA Negative (Negative); PH 6.5 (5.0-9.0); Specific Gravity - Urine 1.010 (1.005-1.025); UMIC TRIGGER UA YES
== END 2025-01-13 09:34 | disposition home or self-care (01) ==
LOC: HO.HMGCLDS 09:33
PROVIDERS: PCP Internal Medicine; Visit Provider Internal Medicine
DX: N39.0 Urinary tract infection, site not specified (principal)
CPT/HCPCS: 81001; 87086; 87088; 87186